=== PATIENT | female | born 1970 | race Caucasian/White ===

== ENCOUNTER 2021-04-10 09:23 | Outpatient (CLI) | payer OTHER, SELFPAY ==
--- NOTE | ~2021-04-10 | MM_ITS ---
EXAMINATION: MM screening [facility] w [facility] HISTORY: Screening TECHNIQUE: Craniocaudal and mediolateral oblique 3-D tomosynthesis images were obtained and synthetic 2-D images were generated. CAD analysis was submitted and interpreted. COMPARISON: Comparison to multiple prior studies sequentially, with oldest reviewed study dated 02/02. BREAST PARENCHYMAL COMPOSITION: Breast composed of scattered areas of fibroglandular density. FINDINGS: There is no evidence of suspicious mass, calcification, or architectural distortion to sugg est malignancy in either breast. There has been no suspicious interval change. IMPRESSION: 1. No mammographic evidence of malignancy. 2. Recommend routine screening mammography in one year. BI-RADS Category 1: Negative Reviewed, dictated and finalized at location A.
== END 2021-04-10 09:24 | disposition home or self-care (01) ==
LOC: ANHIMG 09:25
PROVIDERS: PCP Advanced Practice Midwife; Visit Provider Advanced Practice Midwife
DX: Z12.31 Encounter for screening mammogram for malignant neoplasm of breast (principal)
CPT/HCPCS: 77063; 77067

== ENCOUNTER 2022-05-19 16:43 | Outpatient (CLI) | payer OTHER, SELFPAY ==
--- NOTE | ~2022-05-19 | XR_ITS ---
XR shoulder RT min 2V DATE: 05/19/2022 17:06 INDICATION: Right shoulder pain after multiple falls TECHNIQUE: 5 views COMPARISON: None FINDINGS: There is mild to moderate osteoarthritis at the right glenohumeral joint. Normal alignment at the acromioclavicular and glenohumeral joints. No fracture or dislocation, periosteal reaction or bone destruction. IMPRESSION: Mild to moderate right glenohumeral osteoarthritis Reviewed, dictated and finalized at location B.
== END 2022-05-19 16:44 | disposition home or self-care (01) ==
PROVIDERS: PCP Advanced Practice Midwife
DX: M79.601 Pain in right arm (principal); M19.011 Primary osteoarthritis, right shoulder
CPT/HCPCS: 73030

== ENCOUNTER 2022-06-16 16:05 | Outpatient (CLI) | payer OTHER, SELFPAY ==
--- NOTE | ~2022-06-16 | CT_ITS ---
EXAMINATION: CT abdomen wo con DATE: 06/16/2022 16:35 INDICATION: Hernia. TECHNIQUE: Computed tomography (CT) of the abdomen was performed without intravenous contrast. The do se-length product was 280.69 mGy-cm. Automated exposure control and iterative reconstruction techniqu e were employed. COMPARISON: CT dated 03/18/2015 FINDINGS: Lung bases are unremarkable. Heart size normal. No significant pleural or pericardial effus ion. There is a hiatal hernia with surgical changes in the epigastrium. There are calcified granuloma s of the liver and spleen. The pancreas, adrenal glands and kidneys are unremarkable. There are renal /ureteral stones. Gallbladder is mildly distended. Nonobstructive bowel gas pattern. No significant v ascular abnormality. No lymphadenopathy. Moderate lumbar spondylosis. IMPRESSION: 1. Small hiatal hernia. Surgical changes of the stomach. Reviewed, dictated and finalized at location B.
== END 2022-06-16 16:06 | disposition home or self-care (01) ==
PROVIDERS: PCP Family Medicine
DX: K44.9 Diaphragmatic hernia without obstruction or gangrene (principal); M47.816 Spondylosis without myelopathy or radiculopathy, lumbar region
CPT/HCPCS: 74150

== ENCOUNTER 2022-07-18 08:35 | Outpatient (CLI) | payer OTHER, SELFPAY ==
--- NOTE | ~2022-07-18 | MM_ITS ---
EXAMINATION: MM screening [facility] BI w [facility] HISTORY: Screening mammogram TECHNIQUE: Craniocaudal and mediolateral oblique 3-D tomosynthesis images were obtained and synthetic 2-D images were generated. CAD analysis was submitted and interpreted. COMPARISON: 04/10/2021, 10/03/2019, 09/07/2019 BREAST PARENCHYMAL COMPOSITION: There are scattered areas of fibroglandular density. FINDINGS: No suspicious mass, calcification, or architectural distortion are identified in either malvin ast to suggest malignancy. There has been no suspicious interval change. IMPRESSION: 1. No mammographic evidence of malignancy. 2. Recommend routine screening mammography in one year. BI-RADS Category 1: Negative Reviewed, dictated and finalized at location A.
== END 2022-07-18 08:36 | disposition home or self-care (01) ==
PROVIDERS: PCP Family Medicine; Visit Provider Advanced Practice Midwife
DX: Z12.31 Encounter for screening mammogram for malignant neoplasm of breast (principal)
CPT/HCPCS: 77063; 77067

== ENCOUNTER 2022-10-31 08:19 | Outpatient (CLI) | payer OTHER, SELFPAY ==
--- NOTE | ~2022-10-31 | MR_ITS ---
MRI of the right shoulder Technique: Axial proton-density fat-sat images, coronal proton density fat-sat and T2 fat-sat images, and sagittal T1-weighted and T2 fat-sat images were acquired. Clinical History: Pain, osteoarthritis Findings: There is advanced degenerative change of the acromioclavicular joint. There is bony product madeline change of the distal clavicle with subacromial spur present. There is narrowing of the humeral ac romial distance to approximately 4 mm. Coracoclavicular, coracoacromial, and coracohumeral ligaments are probably intact. There is full-thickness tear involving central and posterior portions of the supraspinatus tendon, wh ich is retracted approximately to the level of the glenoid. Fluid-filled gap measures approximately 1 .7 x 1.8 cm in extent. Anterior most fibers of the supraspinatus tendon appear to remain intact. Infr aspinatus tendon is intact, with mild tendinosis. Subscapularis tendon is intact with moderate distal tendinosis. Tendon of the long head of the biceps is not visualized, presumably ruptured and retract ed proximally. There is questionable superior labral tear versus sublabral recess. Remainder of the labrum is intact . Inferior glenohumeral ligament is intact. There is small glenohumeral joint effusion with fluid passi ng through the rotator cuff defect into the subacromial/subdeltoid bursa. No muscle atrophy or edema evident. There is inferomedial humeral head spur, but articular cartilage of the glenohumeral joint i s well-preserved. Impression: Full-thickness tear involving the central and posterior portions of the supraspinatus tendon, as deta iled above. Complete rupture of the proximal biceps tendon with retraction. Questionable superior labral tear versus a labral recess. Inferomedial humeral head osteophyte, but no significant chondral lesion of the glenohumeral joint. Advanced AC joint degenerative change with narrowing of the humeral acromial distance. Reviewed, dictated and finalized at [facility] Impression: Full-thickness tear involving the central and posterior portions of the suprasp inatus tendon, as detailed above. Complete rupture of the proximal biceps tendon with retraction. Questionable superior labral tear versus a labral recess. Inferomedial humeral head osteophyte, but no significant chondral lesion of the glenohumeral joint. Advanced AC joint degenerative change with narrowing of the humeral acromial di stance.
== END 2022-10-31 08:20 | disposition home or self-care (01) ==
PROVIDERS: PCP Family Medicine
DX: M19.011 Primary osteoarthritis, right shoulder (principal); M25.511 Pain in right shoulder; G89.29 Other chronic pain; S46.811A Strain of other muscles, fascia and tendons at shoulder and upper arm level, right arm, initial encounter; S46.211A Strain of muscle, fascia and tendon of other parts of biceps, right arm, initial encounter; M25.711 Osteophyte, right shoulder
CPT/HCPCS: 73221

== ENCOUNTER 2023-09-22 10:03 | Outpatient (CLI) | payer OTHER, SELFPAY ==
--- NOTE | ~2023-09-22 | XR_ITS ---
EXAM: XR knee RT 3V DATE: 09/22/2023 10:33 HISTORY: PATELLA PAIN AFTER FALLS 6 MONTHS AGO . COMPARISON: None available. FINDINGS: Decreased mineralization. No fracture or dislocation. No lytic or blastic lesion. Mild med ial joint space narrowing. Mild tricompartmental osteophytosis. No erosion or periosteal change. Vari cose veins. IMPRESSION: No acute or chronic traumatic finding in the right knee. Mild tricompartmental osteoarthritis. Reviewed, dictated and finalized at location K. E MAN
== END 2023-09-22 10:04 | disposition home or self-care (01) ==
PROVIDERS: PCP Family Medicine
DX: M17.11 Unilateral primary osteoarthritis, right knee (principal); W19.XXXA Unspecified fall, initial encounter
CPT/HCPCS: 73562

== ENCOUNTER 2024-02-23 11:31 | Outpatient (CLI) | payer OTHER, SELFPAY ==
[2024-02-23 12:54] LABS: T4 Thyroxine 9.78 ug/dL (5.53-11.0)
[2024-02-23 13:07] LABS: Total Triiodothyronine (T3) 0.83 NG/ML (0.97-1.69)
== END 2024-02-23 11:32 | disposition home or self-care (01) ==
LOC: ANHLAB 11:35
PROVIDERS: PCP Family Medicine
DX: E03.9 Hypothyroidism, unspecified (principal)
CPT/HCPCS: 36415; 77063; 77067; 84436; 84443; 84480

== ENCOUNTER 2024-02-23 12:10 | Outpatient (CLI) | payer OTHER, SELFPAY ==
--- NOTE | ~2024-02-23 | MM_ITS ---
EXAMINATION: MM screening [facility] BI w [facility] HISTORY: Screening TECHNIQUE: Craniocaudal and mediolateral oblique 3-D tomosynthesis images were obtained and synthetic 2-D images were generated. CAD analysis was submitted and interpreted. COMPARISON: Comparison to multiple prior studies sequentially, with oldest reviewed study dated 02/13. BREAST PARENCHYMAL COMPOSITION: Not dense: There are scattered areas of fibroglandular density. FINDINGS: There is no evidence of suspicious mass, calcification, or architectural distortion to sugg est malignancy in either breast. There has been no suspicious interval change. IMPRESSION: 1. No mammographic evidence of malignancy. 2. Recommend routine screening mammography in one year. BI-RADS Category 1: Negative Reviewed, dictated and finalized at location B.
== END 2024-02-23 12:11 | disposition home or self-care (01) ==
PROVIDERS: PCP Family Medicine; Visit Provider Advanced Practice Midwife
DX: Z12.31 Encounter for screening mammogram for malignant neoplasm of breast (principal)
CPT/HCPCS: 77063; 77067

== ENCOUNTER 2025-01-05 07:47 | Outpatient (CLI) | payer OTHER, SELFPAY | END 2025-01-05 07:48 | disposition home or self-care (01) | PROVIDERS: PCP Family Medicine; Visit Provider Midwife | DX: Z00.00 Encounter for general adult medical examination without abnormal findings (principal); H90.3 Sensorineural hearing loss, bilateral | CPT/HCPCS: 92557; 92567 ==

== ENCOUNTER 2025-06-02 14:38 | Outpatient (CLI) | payer OTHER, SELFPAY ==
--- NOTE | ~2025-06-02 | MM_ITS ---
EXAMINATION: MM screening [facility] BI w [facility] HISTORY: Screening mammogram TECHNIQUE: Craniocaudal and mediolateral oblique 3-D tomosynthesis images were obtained and synthetic 2-D images were generated. CAD analysis was submitted and interpreted. COMPARISON: Mammograms 02/23/2024 and 07/18/2022 BREAST PARENCHYMAL COMPOSITION: The breasts are extremely dense, which lowers the sensitivity of mammography. FINDINGS: RIGHT BREAST: No suspicious calcifications or architectural distortion. Focal asymmetry in the right breast at 12:00 position posterior depth. In addition there is an asymmetry in the outer right breast, posterior depth, seen in the right cc projection. LEFT BREAST: There is no evidence of suspicious mass, calcification, or architectural distortion to suggest malignancy. There has been no significant interval change. IMPRESSION: 1. Focal asymmetry in the right breast at 12:00 position, posterior depth. In addition, there is an asymmetry in the outer right breast, posterior depth, seen in the right cc projection. 2. No mammographic evidence for malignancy in the left breast. BI-RADS Category 0: Incomplete: Needs additional imaging evaluation. Reviewed, dictated and finalized at location Q. IMPRESSION: 1. Focal asymmetry in the right breast at 12:00 position, posterior depth. In a ddition, there is an asymmetry in the outer right breast, posterior depth, seen in the right cc projection. 2. No mammographic evidence for malignancy in the left breast. BI-RADS Category 0: Incomplete: Needs additional imaging evaluation.
== END 2025-06-02 14:39 | disposition home or self-care (01) ==
LOC: ANHFOHIMG 14:40
PROVIDERS: PCP Family Medicine; Visit Provider Advanced Practice Midwife
DX: Z12.31 Encounter for screening mammogram for malignant neoplasm of breast (principal); R92.8 Other abnormal and inconclusive findings on diagnostic imaging of breast
CPT/HCPCS: 77063; 77067

== ENCOUNTER 2025-07-17 13:21 | Outpatient (CLI) | payer OTHER, SELFPAY ==
--- NOTE | ~2025-07-17 | MMUS_ITS ---
EXAMINATION: MM diagnostic jovita RT w isidoro, US breast RT complete HISTORY: Follow-up right breast asymmetries TECHNIQUE: Additional 3-D tomosynthesis images of the right breast were performed and synthetic 2-D images were generated. CAD analysis was submitted and interpreted. High resolution complete right breast ultrasound was performed. COMPARISON: Comparison to multiple prior studies sequentially, with oldest reviewed study dated 09/07/2019. BREAST PARENCHYMAL COMPOSITION: Not dense: There are scattered areas of fibroglandular density. FINDINGS: MAMMOGRAPHIC FINDINGS: There are no suspicious masses, calcifications or architectural distortion in the right breast to suggest malignancy. Right breast asymmetries are less apparent with spot compression and lateral views. ULTRASOUND: Complete US of all 4 quadrants of the right breast/s and retroareolar region was reviewed. Normal heterogeneous echotexture without focal solid or cystic mass. IMPRESSION: 1. No evidence for malignancy in the right breast. 2. Routine yearly screening mammogram and regular clinical breast examination are recommended. BI-RADS Category 1: Negative Reviewed, dictated and finalized at location B. IMPRESSION: 1. No evidence for malignancy in the right breast. 2. Routine yearly screening mammogram and regular clinical breast examination a re recommended. BI-RADS Category 1: Negative
--- OUTSIDE RECORDS SUMMARY | 2025-07-17 14:57 | XMS_ITS | Data Portability ---
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 Patient will come back in a year unless there are new symptoms. Suggest Calcium with Vitamin D if not eating in diet. Patient advised to get annual flu shot. Recommend yearly physicals and preform monthly breast exams. Genetic testing is available for patients with family history of cancer. Engage in safe sexual practices, use condoms. Encouraged to have daily exercise. Avoid tobacco and illicit drugs, moderation of alcohol. If BMI greater than 25 dietary consult advised. If you have any questions please call or email. mammogram order given Not available 05/29/2023 12:03:43 11/23/2024 11/23/2024 Annual gynecological exam performed. Patient will come back in a year unless there are new symptoms. Suggest Calcium with Vitamin D if not eating in diet. Patient advised to get annual flu shot. Recommend yearly physicals and preform monthly breast exams. Genetic testing is available for patients with family history of cancer. Engage in safe sexual practices, use condoms. Encouraged to have daily exercise. Avoid tobacco and illicit drugs, moderation of alcohol. If BMI greater than 25 dietary consult advised. If you have any questions please call or email. pap collected IUD removed start vaginal estrogen f/u with CT and guide travel can discuss other tx for menopause at 3 month med check, will have all results back mammogram order given Not available 11/23/2024 16:57:20 03/01/2025 03/01/2025 f/u 3 mo med check Not available 03/01/2025 11:18:41 Plan of Treatment Reminders Order Date Submit Date Provider Last Modified By Organization Details Last Modified Time Details Appointments None recorded. Lab pap, IG + HR HPV - HPV regardless but if HPV is positive need subtyping 16,18/[address] [facility] (Lab), [address], [place], [address], 14:10:26 Referral None recorded. Procedures None recorded. Surgeries None recorded. Imaging US, pelvis 2021 [address]22 [address], [address], [place], [address], 22:15:28 US, transvagina l [address], [address], [place], [address], 22:15:28 Medication Orders estradiol 0.0375 mg/24 hr semiweekly transdermal patch 2024 025 [id number], [address] [place], [address], 16:19:05 progesteron e micronized 100 mg capsule 2024 025 [id number], [address] [place], [address], 5 11:16:41 estradiol 0.01% (0.1 mg/gram) vaginal cream 2024 025 [id number], [address] [place], [address], 16:44:31 Patient TargetsNo targets recorded. Patient InstructionsNo instructions recorded. Reason for Referral None Reported. Results Created Date Observation Date Name Description Value Unit Range Abnormal Flag Note LastModifiedBy Organization Detail LastModifiedTime 04/25/2004/25/2022 FSH, LH, ESTRA DIOL estradiol 7.4 pg/mL This assay was perfo rmed using [employer] ratio n reage nts and test kits. Value s obtai virginie with other assay metho ds or kits canno t be used inter [facility] . Femal e Estra diol Range s: Folli cular phase 12.4- 233 pg/mL Ovula tion phase 41.0- 398 pg/mL Lutea l phase 22.3- 341 pg/mL Postm enopa usal< 5-138 pg/mL Healt hy Pregn ant Women 1st Trime ster1 54-32 43 pg/mL 2nd Trime ster1 561-2 1280 pg/mL 3rd Trime ster8 525-> 11874 pg/mL Not Available [facility] Infectious Disease [address] [place] [address], [address], 04/26/2022 03:53:37 04/25/20 22 04/25/2022 FSH, LH, ESTRA DIOL FSH 72.0 mIU/m L This assay was perfo rmed using [employer] reage nts and test kits. Value s obtai virginie with other assay metho ds or kits canno t be used inter [facility] . Femal es Folli cular : 3.5-1 2.5 mIU/m L Ovula tion: 4.7-2 1.5 mIU/m L Lutea l: 1.7-7 .7 mIU/m L Postm enopa use: 25.8- 134.8 mIU/m L Not Available [facility] Infectious Disease [address] [place], [address], 04/26/2022 03:53:37 04/25/20 22 04/25/2022 FSH, LH, ESTRA DIOL LH 52.9 mIU/m L This assay was perfo rmed using [employer] n reage nts and test kits. Value s obtai virginie with other assay metho ds or kits canno t be used inter [facility] . Femal es Mid-F ollic ular: 2.4-1 2.6 mIU/m L Mid-C ycle: 14.0- 95.6 mIU/m L Mid-L uteal : 1.0-1 1.4 mIU/m L Postm enopa use: 7.7-5 8.5 mIU/m L Not Available [facility] [address] [place], [address], 04/26/2022 03:53:37 04/25/20 22 04/25/2022 IMAGE GUIDE D PAP AND HPV REGAR DLESS image guided Pap, HPV regardless of Pap result SEE RESULT S BELOW CASE REPOR T: Cytol ogy Gynec ologi rick Repor t Case: [id number] Autho panda stanley Provi severiano: Yadira Michael NP Colle cted: 04/25 1603 Order ing Locat ion: [place] Patho log[facility] Recei rivera: 04/26 0114 First Scree n: Mara Resendiz ret, CT Rescr een: Daly Patel, CT Speci men: Scree marquita Pap - Image d, Cervi x STATE MENT OF ADEQU ACY: Satis facto ry for evalu ation Trans forma tion zone compo nent prese nt FINAL DIAGN OSIS: Negat madeline for Intra epith elial Kristine jordan or Pennie rhoades (NIL) . Elect spike le d by Daly Patel, CT on 2021 at 7:56 PM ----- ----- ----- ----- ----- ----- ----- ----- ----- ----- ----- ----- ----- ----- ----- ----- ----- ---- HPV RESUL TS: HPV mRNA E6/E7 : No HPV mRNA Detec kinza NOTE: This high risk HPV mRNA assay detec ts fourt een high- risk HPV types (16, 18, 31, 33, 35, 39, 45, 51, 52, 56, 58, 59, 66, 68) witho ut diffe renti ation . COMME NT: Note: This speci men was revie wed by a Cytot echno logis t and/o r Patho logis t (as indic ated in this repor t) after evalu ation using the Thinp rep Imagi ng Syste m. CLINI RICK INFOR MATIO N: Menst rual Statu s: LMP (if appli cable ): Clini rick Histo ry/Pr eviou s Pap: Type of Neopl yessenia (if appli cable ): Signi fican t Clini rick Findi ngs: Other Histo ry: Hormo hilary (if appli cable ): PAP EDUCA ELSA L NOTE: The Pap Test is a scree marquita test with an inher ent false negat madeline rate. Liqui d-bas ed sampl ing may decre ase, but will not elimi shonda, false negat madeline resul ts. A negat madeline resul t does not precl ude the prese nce and/o r devel opmen t of disea se, since the prese nce of abnor mal cells in the sampl e depen ds on the locat ion of the lesio n and sampl ing techn ique. Riley nued regul ar scree marquita is the best metho d of cance r preve ntion . If repor kinza cytol ogic findi ng do not corre late with physi rick and/o r histo rical findi ngs, furth er inves tigat ion is recom jose d, as clini gwen cho nted. Not Available [facility] Infectious Disease [address] [place], [address], 04/30/2022 20:59:10 05/13/20 23 05/13/2023 FSH, LH, ESTRA DIOL estradiol 8.9 pg/mL This assay was perfo rmed using [employer] n reage nts and test kits. Value s obtai virginie with other assay metho ds or kits canno t be used inter [facility] . Femal e Estra diol Range s: Folli cular phase 12.4- 233 pg/mL Ovula tion phase 41.0- 398 pg/mL Lutea l phase 22.3- 341 pg/mL Postm enopa usal< 5-138 pg/mL Healt hy Pregn ant Women 1st Trime ster1 54-32 43 pg/mL 2nd Trime ster1 561-2 1280 pg/mL 3rd Trime ster8 525-> 36067 pg/mL Not Available [facility] (Lab) [address] [place], [address], 05/14/2023 03:31:22 05/13/2005/13/2023 FSH, LH, ESTRA DIOL FSH 67.9 mIU/m L This assay was perfo rmed using [employer] ratio n reage nts and test kits. Value s obtai virginie with other assay metho ds or kits canno t be used inter [facility] . Femal es Folli cular : 3.5-1 2.5 mIU/m L Ovula tion: 4.7-2 1.5 mIU/m L Lutea l: 1.7-7 .7 mIU/m L Postm enopa use: 25.8- 134.8 mIU/m L Not Available [facility] (Lab) [address] [place], [address], 05/14/2023 03:31:22 05/13/2005/13/2023 FSH, LH, ESTRA DIOL LH 54.4 mIU/m L This assay was perfo rmed using [employer] n reage nts and test kits. Value s obtai virginie with other assay metho ds or kits canno t be used inter [facility] . Femal es Mid-F ollic ular: 2.4-1 2.6 mIU/m L Mid-C ycle: 14.0- 95.6 mIU/m L Mid-L uteal : 1.0-1 1.4 mIU/m L Postm enopa use: 7.7-5 8.5 mIU/m L Not Available [facility] (Lab) [address], [place], [address], 05/14/2023 03:31:22 05/29/20 23 05/29/2023 IMAGE GUIDE D PAP AND HPV REGAR DLESS image guided Pap, HPV regardless of Pap result SEE RESULT S BELOW CASE REPOR T: Cytol ogy Gynec ologi rick Repor t Case: [id number] Autho panda jaden Provi severiano: Yadira Michael, KITTY Colle cted: 05/29 1319 Order ing Locat ion: [place] Patho logy Recei rivera: 06/01 0704 First Scree n: Mara Resendiz ret, CT Speci men: Scree marquita Pap - Image d, Cervi x STATE MENT OF ADEQU ACY: Satis facto ry for evalu ation Trans forma tion zone compo nent prese nt FINAL DIAGN OSIS: Negat madeline for Intra epith elial Lesio n or Pennie rhoades (NIL) . Elect spike paz rey d by Mara Resendiz ret, CT on 2022 at 10:45 AM ----- ----- ----- ----- ----- ----- ----- ----- ----- ----- ----- ----- ----- ----- ----- ----- ----- ---- HPV RESUL TS: HPV mRNA E6/E7 : No HPV mRNA Detec kinza NOTE: This high risk HPV mRNA assay detec ts fourt een high- risk HPV types (16, 18, 31, 33, 35, 39, 45, 51, 52, 56, 58, 59, 66, 68) witho ut diffe renti ation . COMME NT: This speci men was revie wed by a Cytot echno logis t and/o r Patho logis t (as indic ated in this repor t) after evalu ation using the Thinp rep Imagi ng Syste m. CLINI RICK INFOR MATIO N: Menst rual Statu s: LMP (if appli cable ): Clini rick Histo ry/Pr eviou s Pap: Type of Neopl yessenia (if appli cable ): Signi fican t Clini rick Findi ngs: Other Histo ry: Hormo hilary (if appli cable ): PAP EDUCA ELSA L NOTE: The Pap Test is a scree marquita test with an inher ent false negat madeline rate. Liqui d-bas ed sampl ing may decre ase, but will not elimi shonda, false negat madeline resul ts. A negat madeline resul t does not precl ude the prese nce and/o r devel opmen t of disea se, since the prese nce of abnor mal cells in the sampl e depen ds on the locat ion of the lesio n and sampl ing techn ique. Riley nued regul ar scree marquita is the best metho d of cance r preve ntion . If repor kinza cytol ogic findi ng do not corre late with physi rick and/o r histo rical findi ngs, furth er inves tigat ion is recom jose d, as clini gwen cho nted. Not Available [facility] (Lab) [address] [facility], [place], [address], 06/02/2023 11:50:05 11/25/19 25 11/24/2024 IMAGE GUIDE D PAP AND HPV REGAR DLESS image guided Pap, HPV regardless of Pap result SEE RESULT S BELOW CASE REPOR T: Cytol ogy Gynec ologi rick Repor t Case: [id number] Autho panda stanley Provi severiano: Yadira Michael NP Colle cted: 11/24 0834 Order ing Locat ion: [place] Patho logy Recei rivera: 11/25 0241 First Scree n: Yao Avalos, CT Rescr een: Strut z, Willi am, CT Speci men: Scree marquita Pap - Image d, Cervi x STATE MENT OF ADEQU ACY: Satis facto ry for evalu ation Trans forma tion zone compo nent prese nt ----- ----- ----- ----- ----- ----- ----- ----- ----- ----- ----- ----- ----- ----- ----- ----- ----- ---- FINAL DIAGN OSIS: Negat madeline for Intra epith elial Lesio nikki or Pennie rhoades (NIL) . Atrop hy prese nt. Elect spike de by Enzo marshall, CT on 2024 at 1306 CDT ----- ----- ----- ----- ----- ----- ----- ----- ----- ----- ----- ----- ----- ----- ----- ----- ----- ---- HPV RESUL TS: HPV mRNA E6/E7 : No HPV mRNA Detec kinza NOTE: This high risk HPV mRNA assay detec ts fourt een high- risk HPV types (16, 18, 31, 33, 35, 39, 45, 51, 52, 56, 58, 59, 66, 68) witho ut diffe renti ation . COMME NT: This speci men was revie wed by a Cytot echno logis t and/o r Patho logis t (as indic ated in this repor t) after evalu ation using the Thinp rep Imagi ng Syste m. CLINI RICK INFOR MATIO N: Menst rual Statu s: LMP (if appli cable ): Clini rick Histo ry/Pr eviou s Pap: Type of Neopl yessenia (if appli cable ): Signi fican t Clini rick Findi ngs: Other Histo ry: Hormo hilary (if appli cable ): PAP EDUCA ELSA L NOTE: The Pap Test is a scree marquita test with an inher ent false negat madeline rate. Liqui d-bas ed sampl ing january decre ase, but will not elimi shonda, false negat madeline resul ts. A negat madeline resul t does not precl ude the prese nce and/o r devel opmen t of disea se, since the prese nce of abnor mal cells in the sampl e depen ds on the locat ion of the lesio n and sampl ing techn ique. Riley nued regul ar scree marquita is the best metho d of cance r preve ntion . If repor kinza cytol ogic findi ng do not corre late with physi rick and/o r histo rical findi ngs, furth er inves tigat ion is recom jose d, as clini gwen warra nted. Not Available [facility] (Lab) [address] [facility], [place], [address], 11/29/2024 14:10:26 03/01/2003/01/2025 TESTO STERO NE, FREE( DIALY SIS) AND TOTAL (LC/M S/MS) testosterone , total 15 NG/dL 2-45 For addit ional infor alma freeman e refer to http: //[facility] natacha jordan.que stdia gnost ics.c om/fa q/ Total Testo stero neLCM SMSFA Q165 (This link is being provi ded for infor praful cerrato/ educa elsa l purpo ses only. ) This test was devel oped and its sri tical perfo rmanc e dayanara cteri stics have been deter mined by [facility] Joseluis Bordeni [place]. It has not been clear ed or appro rivera by the U.S. Food and Drug Admin istra tion. This assay has been valid ated pursu ant to the CLIA regul ation s and is used for clini rick purpo ses. Not Available [facility] (Lab) [address], [place], [address], 03/06/2025 14:33:23 03/01/2003/01/2025 TESTO STERO NE, FREE( DIALY SIS) AND TOTAL (LC/M S/MS) testosterone , free 0.9 pg/mL 0.1-6. 4 This test was devel oped and its sri tical perfo rmanc e dayanara cteri stics have been deter mined by [facility] krish Huggins [place], [place]. It has not been clear ed or appro rivera by the U.S. Food and Drug Admin istra tion. This assay has been valid ated pursu ant to the CLIA regul ation s and is used for clini rick purpo ses. Perfo rming Organ izati on Infor matio n: Site ID: AMD Name: Gemisimo Roxie borrego [facility] Addre ss: [id number] [facility] [employer] [place], [place] Direc tor: Maranda Kern MD PhD Not Available [facility] (Lab) [address] [facility], [place], [address], 03/06/2025 14:33:23 05/06/20 22 05/06/2022 US, pelvi s No observ ation record ed. [id number], [place], [address], 05/06/2022 17:36:51 05/06/20 22 05/06/2022 US, trans vagin al No observ ation record ed. [address], [place], [address], 05/06/2022 17:37:02 05/06/20 22 05/06/2022 US, pelvi s No observ ation record ed. [email or web address], [place], [address], 05/12/2022 16:38:04 05/19/20 22 05/19/2022 XR, shoul severiano No observ ation record ed. [place] [id number], [place], [address], 01/29/2023 10:05:03 07/18/20 22 07/18/2022 MAMMO , scree marquita, bilat eral No observ ation record ed. [facility] [address], [place], [address], 07/20/2022 21:44:38 02/23/20 24 02/23/2024 MAMMO , scree marquita, digit al, bilat eral No observ ation record ed. [facility] [address], [place], [address], 11/30/2024 14:44:41 06/06/20 25 06/02/2025 MAMMO , scree marquita, bilat eral No observ ation record ed. [address] [facility] [address], [place], [address], 06/07/2025 10:35:35 Result Notes None recorded. Problems Name Problem SNOMED Code Status Onset Date Resolution Date Notes Provider Name and Address Organization Details Recorded Time Screenin g for malignan t neoplasm of rectum Completed 201204/09/2021 Screenin g for malignan t neoplasm s of the rectum;R ecorded Elsewher e: No Locat ion: [facility] S ource: EHR Floor Layer Helper temi: N Practi ce ID: 0001 Nikita lable Time: 09:45:00 AM Mya edwards [facility] 1 12:12:44 Screenin g for malignan t neoplasm of cervix Completed 201304/09/2021 Screenin g for malignan t neoplasm s of the cervix;R ecorded Elsewher e: No Locat ion: [facility] S ource: EHR Floor Layer Helper temi: N Practi ce ID: 0001 Nikita lable Time: 09:30:00 AM Mya edwards [facility] 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 12:12:50 Morbid obesity [id number] Completed 201404/09/2021 Obesity, Morbid;R ecorded Elsewher e: No Locat ion: [facility] Pract[facility] ID: 0001 Nikita lable Time: 11:00:00 AM Mya Bledsoe [facility] 12:12:35 Adult health examinat ion Completed 201404/09/2021 ROUTINE MEDICAL EXAM;Rec orded Elsewher e: No Locat ion: [facility] N Ashleyti ce ID: 0001 Nikita lable Time: 11:00:00 AM Mya Bledsoe grace, [facility] 1 12:12:01 Insertio n of intraute rine contrace ptive device Completed 201404/09/2021 INSERTIO N OF IUD;Sean rded Elsewher e: No Locat ion: [facility] N Ashleyti ce ID: 0001 Nikita lable Time: 08:45:00 AM Mya edwards [facility] 12:12:32 Uses IUD (intraut erine device) contrace ption [id number] Completed 201404/09/2021 Surveill ance of intraute rine contrace ptive device;R ecorded Elsewher e: No Locat ion: [facility] S ource: EHR Floor Layer Helper temi: N Ashleyti ce ID: 0001 Nikita lable Time: 03:00:00 PM Mya edwards [facility] [address] 12:12:[address] Concept Completed 201504/09/2021 Encntr for general adult medical exam w/o abnormal findings ;Recorde d Elsewher e: No Locat ion: [facility] S ource: EHR Floor Layer Helper temi: N Practi ce ID: 0001 Nikita lable Time: 09:00:00 AM Mya Bledsoe [facility] 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 1 12:12:48 Contrace ptive sheath status [id number] Completed 201704/09/2021 Encounte r for routine checking of IUD;Sean rded Elsewher e: No Locat ion: [facility] S ource: EHR Floor Layer Helper temi: N Practi ce ID: 0001 Nikita lable Time: 09:49:00 AM Mya Bledsoe [facility] 1 12:12:11 Disorder of intraute rine contrace ptive device Completed 201704/09/2021 [facility] compl of intraute rine contrace ptive device, init encntr;R ecorded Elsewher e: No Locat ion: [facility] S ource: EHR Floor Layer Helper temi: N Practi ce ID: 0001 Nikita lable Time: 09:45:00 AM Mya Bledsoe [facility] 1 12:12:25 Evaluati on finding Completed 201804/09/2021 Oth abn and inconclu sive findings on dx imaging of breast;R ecorded Elsewher e: No Locat ion: [facility] N Ashleyti ce ID: 0001 Nikita lable Time: 01:30:00 PM Mya edwards, [facility] 12:12:06 Acetonur ia [id number] Completed 201804/09/2021 Acetonur ia;Recor ded Elsewher e: No Locat ion: [facility]in [facility] N Ashleyti ce ID: 0001 Nikita lable Time: 01:30:00 PM Mya edwards, [facility] 12:11:59 Cyst of ovary Completed 201904/09/2021 Unspecif ied ovarian cyst, unspecif ied side;Rec orded Elsewher e: No Locat ion: [facility] S ource: [facility] temi: N Karen ce ID: 0001 Nikita lable Time: 01:00:00 PM Mya edwards, [facility] 12:12:27 Pregnanc y test negative [id number] Completed 201904/09/2021 Encounte r for pregnanc y test, result negative ;Recorde d Elsewher e: No Locat ion: [facility] S ource: [facility] temi: N Ashleyti ce ID: 0001 Nikita lable Time: 01:00:00 PM Mya edwards, [facility] 12:12:39 Replacem ent of intraute rine contrace ptive device Completed 201904/09/2021 Encntr for removal and reinsert ion of uterin contrace p dev;Sean rded Elsewher e: No Locat ion: [facility] S ource: [facility] temi: N Ashleyti ce ID: 0001 Nikita lable Time: 02:00:00 PM Mya edwards, [facility] 12:12:41 Biliuria [id number] Completed 201904/09/2021 Biliuria ;Recorde d Elsewher e: No Locat ion: [facility] N Ashleyti ce ID: 0001 Nikita lable Time: 01:00:00 PM Myatimmy Bledsoe [facility] 1 12:12:03 Evaluati on finding Completed 201904/09/2021 Hematuri a;Record ed Elsewher e: No Locat ion: [facility] N Practi ce ID: 0001 Nikita lable Time: 01:00:00 PM Mya Bledsoe [facility] 12:12:29 Clinical finding Completed 201904/09/2021 Presence of IUD;Sean rded Elsewher e: No Locat ion: [facility] N Ashleyti ce ID: 0001 Nikita lable Time: 01:00:00 PM Mya Ladi [facility] 1 12:12:08 Postcoit al finding [id number] Completed 201904/09/2021 Postcoit al and contact bleeding ;Recorde d Elsewher e: No Locat ion: [facility] N Ashleyti ce ID: 0001 Nikita lable Time: 04:09:00 PM Mya Bledsoe [facility] 1 12:12:38 Hyperten sive disorder [id number] Active 2024 Mya Bledsoe [facility] 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 5 11:01:45 Problem Notes None recorded. Procedures Surgical History Date Name Laterality Status Provider Name and Address Organization Details Recorded Time 06/02/20 25 Date of Last Mammogram completed Soledad Angelo [facility] 06/07/2025 16:19:58 11/24/19 25 IUD Removal completed Mya Bledsoe [facility] 11/23/2024 21:20:22 11/24/19 25 Date of Last Pap Smear completed Mya Bledsoe [facility] 11/23/2024 21:21:42 10/22/19 25 endoscopy completed Mya Bledsoe [facility] 11/23/2024 16:16:20 08/21/20 24 endoscopy completed Mya Bledsoe [facility] 11/23/2024 16:18:39 05/22/20 24 endoscopy completed Mya Bledsoe [facility] 11/23/2024 16:18:33 04/28/20 24 Gastric Bypass completed Mya Bledsoe [facility] 11/23/2024 16:15:15 02/20/20 24 endoscopy completed Mya Bledsoe [facility] 11/23/2024 16:18:30 11/20/19 24 endoscopy completed Mya Bledsoe [facility] 11/23/2024 16:18:25 09/21/19 24 Date of Last Colonoscopy completed Soledad Angelo [facility] 06/07/2025 16:22:19 09/21/19 24 Colonoscopy completed Mya Bledsoe [facility] 11/23/2024 16:15:24 09/21/19 24 endoscopy completed Mya Bledsoe [facility] 11/23/2024 16:18:21 09/21/19 19 laparoscopic sleeve gastrectomy completed Mya Bledsoe [facility] 04/10/2021 09:56:13 09/21/19 07 termination of completed Mya Bledsoe [facility] 05/28/2023 15:18:42 10/22/19 01 section completed Mya Bledsoe [facility] 04/09/2021 14:06:00 09/21/19 01 repair of umbilical hernia completed Mya Bledsoe [facility] 04/09/2021 14:05:40 05/22/19 97 section completed Mya Bledsoe [facility] 04/09/2021 14:05:54 Imaging Results None recorded. Procedure Notes None recorded. Medical Equipment None Reported. Allergies Allergen ID Allergen Name Allergen Category Reaction Reaction Severity Criticality Documentation Date Start Date Code Code System Note Provider Name and Address Organization Details Recorded Time 19559 pamabrom medicatio n Not available Not available Not available 09/07/2020 42730 RxNorm Comme nt: [facility] Agent : Midol ; Not Available [facility] 0 14:17:48 49824 acetamino phen medicatio n Not available Not available Not available 09/07/2020 161 RxNorm Comme nt: [facility] Agent : Midol ; [facility] 1 09:54:39 11001 phenyleph rine / pyrilamin e medicatio n Not available Not available Not available 04/09/2021 70282 2 RxNorm Mya edwards [facility] 1 14:13:01 65082 acetamino phen / pamabrom medicatio n Not available Not available Not available 04/10/2021 16869 4 RxNorm Mya edwards [facility] 1 09:54:34 Medications Name Sig Start Date Stop Date Status Note LastModified by Organization Details LastModified Time losartan 50 mg tablet 03/01 completed Not Available Not Available Not Available celecoxib 200 mg capsule TAKE 1 CAPSULE BY MOUTH EVERY DAY 05/29 completed Not Available Not Available Not Available cyclobenz aprine 10 mg tablet TAKE 1 TABLET (10 MG TOTAL) BY MOUTH EVERY 8 HOURS FOR 5 DAYS 11/23 completed Not Available Not Available Not Available Mirena 21 mcg/24 hr (up to 8 years) 52 mg intrauter ine device 06/07 completed mirena IUD inserted 0 and needs removed 6 Not Available Not Available Not Available venlafaxi ne ER 75 mg capsule,e xtended release 24 hr TAKE 1 CAPSULE BY MOUTH EVERY DAY DIRECTED 11/23 completed Not Available Not Available Not Available doxycycli ne hyclate 100 mg capsule TAKE 2 CAPSULES ONCE 11/23 completed Not Available Not Available Not Available estradiol 0.075 mg/24 hr semiweekl y transderm al patch APPLY 1 PATCH TRANSDER ADI TWICE A WEEK active Not Available Not Available No t Available azithromy agatha 250 mg tablet TAKE 2 TABLETS BY MOUTH TODAY, THEN TAKE 1 TABLET DAILY FOR 4 DAYS 05/29 completed Not Available Not Available Not Available hydrocodo ne 5 mg-acetam inophen 325 mg tablet TAKE 1 TABLET BY MOUTH EVERY 6 HOURS NEEDED FOR PAIN 03/01 completed Not Available Not Available Not Available meloxicam 15 mg tablet TAKE 1 TABLET BY MOUTH EVERY DAY 05/29 completed Not Available Not Available Not Available Synthroid 100 mcg tablet take 1 tablet (100MCG) by oral route every day 02/02 completed Prescrib ed Elsewher e: No [facility]at [facility] By: cmedical Encount er DateTime : 09/27/19 14 11:30:33 AM Not Available Not Available Not Available amlodipin e 2.5 mg tablet TAKE 1 TABLET BY MOUTH EVERY DAY active Not Available Not Available No t Available estradiol 0.05 mg/24 hr semiweekl y transderm al patch APPLY 1 PATCH TRANSDER ADI TWICE A WEEK 06/07 completed Not Available Not Available Not Available methotrex ate sodium 25 mg/mL injection solution inject 3.28 millilit er by intramus cular route every day 02/05 completed Prescrib ed Elsewher e: Yes Loca tion: Tim[facility] odify By: [email or web address] trick En counter DateTime : 02/03/20 14 09:30:00 AM Not Available Not Available Not Available ciproflox acin 500 mg tablet TAKE 1 TABLET BY MOUTH EVERY 12 HOURS FOR 7 DAYS 06/07 completed Not Available Not Available Not Available omeprazol e 40 mg capsule,d elayed release TAKE 1 CAPSULE BY MOUTH 2 TIMES DAILY, BEFORE BREAKFAS T AND SUPPER 11/23 completed Not Available Not Available Not Available levothyro xine 25 mcg tablet TAKE 1 TABLET BY MOUTH EVERY DAY 04/25 completed Not Available Not Available Not Available levothyro xine 75 mcg tablet TAKE 1 TABLET BY MOUTH EVERY DAY active Not Available Not Available No t Available Macrobid 100 mg capsule take 1 capsule by oral route every 12 hours with food for 5 days 04/09 completed Not Available Not Available Not Available famotidin e 20 mg tablet TAKE 1 TABLET BY MOUTH TWICE A DAY 11/23 completed Not Available Not Available Not Available tamsulosi n 0.4 mg capsule TAKE 1 CAPSULE BY MOUTH DAILY FOR 10 DAYS. 03/01 completed Not Available Not Available Not Available Flagyl 500 mg tablet take 1 tablet by oral route every 12 hours 04/09 completed Prescrib ed Elsewher e: No Locat ion: [facility] odify By: yuliet cope DateTime : 12/20/19 09:00:00 AM Not Available Not Available Not Available benzonata te 100 mg capsule TAKE 1 CAPSULE BY MOUTH THREE TIMES A DAY NEEDED FOR 5 DAYS 11/23 completed Not Available Not Available Not Available levothyro xine 50 mcg tablet TAKE 1 TABLET BY MOUTH EVERY DAY 03/01 completed Not Available Not Available Not Available venlafaxi ne 37.5 mg tablet take 1 tablet by oral route 2 times every day with food 09/07 completed Prescrib ed Elsewher e: Yes Loca tion: [facility] odify By: [email or web address] z Fede ter DateTime : 02/06/20 11:00:00 AM Not Available Not Available Not Available triamcino lone acetonide 0.1 % topical ointment apply by topical route 2 times every day a thin layer to the affected area(s) 09/07 completed Prescrib jessica Elsew e: No Locat ion: Timmy low [facility] odify By: jolie Mistry ter DateTime : 02/12/20 16 09:00:00 AM Not Available Not Available Not Available hyoscyami ne 0.125 mg sublingua l tablet TAKE 1 TABLET BY MOUTH EVERY 6 (SIX) HOURS FOR [address] UNDER TONGUE AND LET DISSOLVE 11/23 completed Not Available Not Available Not Available ursodiol 300 mg capsule TAKE 1 CAPSULE BY MOUTH 2 (TWO) TIMES A DAY TAKE FOR 6 MONTHS AFTER SURGERY TO PREVENT GALLSTON ES 11/23 completed Not Available Not Available Not Available losartan 25 mg tablet TAKE 1 TABLET BY MOUTH EVERY DAY 11/23 completed Not Available Not Available Not Available progester one micronize d 200 mg capsule TAKE 1 CAPSULE BY MOUTH EVERY DAY active Not Available Not Available No t Available omeprazol e 20 mg capsule,d elayed release TAKE 1 (ONE) CAPSULE BY MOUTH DAILY BEFORE BREAKFAS T REASONS: GASTROES OPHAGEAL REFLUX DISEASE 04/25 completed Not Available Not Available Not Available monteluka st 10 mg tablet take 1 tablet by oral route every day in the evening 09/07 completed Prescrib jessica Alejandre e: Yes Loca tion: Timmy low [facility] odify By: jolie z Encoun ter DateTime : 02/06/20 15 11:00:00 AM Not Available Not Available Not Available azelastin e 137 mcg (0.1 %) nasal spray SPRAY 1-2 SPRAYS INTO EACH NOSTRIL TWICE A DAY active Not Available Not Available No t Available polyethyl ysabel glycol 3350 17 gram/dose oral powder MIX 17 GRAMS DIRECTED AND TAKE BY MOUTH 2 (TWO) TIMES A DAY 11/23 completed Not Available Not Available Not Available estradiol 0.01% (0.1 mg/gram) vaginal cream INSERT 1 APPLICAT ORFUL 3 TIMES A WEEK BY VAGINAL ROUTE. active Not Available Not Available No t Available methylpre dnisolone 4 mg tablets in a dose pack TAKE 6 TABLETS ON DAY 1 DIRECTED ON PACKAGE AND DECREASE BY 1 TAB EACH DAY FOR A TOTAL OF 6 DAYS 06/07 completed Not Available Not Available Not Available Vitamin D2 1,250 mcg (50,000 unit) capsule take 1 capsule ([id number] ITS) by oral route every week 02/05 completed Prescrib ed Elsewher e: No Locat ion: Timmy low [facility] odify By: [email or web address] xavier En counter DateTime : 04/25/20 13 01:45:48 PM Not Available Not Available Not Available estradiol 0.0375 mg/24 hr semiweekl y transderm al patch APPLY 1 PATCH TRANSDER ADI TWICE A WEEK 06/07 completed Not Available Not Available Not Available ondansetr on 4 mg disintegr ating tablet LET 1 TABLET DISSOLVE UNDER TONGUE EVERY 8 HOURS NEEDED FOR NAUSEA OR VOMITING 11/23 completed Not Available Not Available Not Available losartan 100 mg tablet TAKE 1 TABLET BY MOUTH EVERY DAY active Not Available Not Available No t Available fluticaso ne propionat e 50 mcg/actua tion nasal spray,ludwig pension INSTILL 2 SPRAYS BY INTRANAS AL ROUTE EVERY DAY 11/23 completed Not Available Not Available Not Available lisinopri l 2.5 mg tablet take 1 tablet by oral route every day 09/07 completed Prescrib ed Elsewher e: Yes Loca [facility]ion: [facility] By: jolie cope DateTime : 02/03/20 14 09:30:00 AM Not Available Not Available Not Available estradiol 0.1 mg/24 hr weekly transderm al patch APPLY 1 PATCH BY TRANSDER MAL ROUTE EVERY WEEK active Not Available Not Available No t Available progester one micronize d 100 mg capsule TAKE 1 CAPSULE BY MOUTH EVERY NIGHT active Not Available Not Available No t Available amoxicill in 875 mg-potass ium clavulana te 125 mg tablet TAKE 1 TABLET BY MOUTH EVERY 12 HOURS FOR 10 DAYS 11/23 completed Not Available Not Available Not Available oxycodone 5 mg tablet TAKE 1 TABLET BY MOUTH EVERY 6 HOURS NEEDED FOR PAIN (PAIN NOT CONTROLL ED BY OTHER MEDICINE S.) 11/23 completed Not Available Not Available Not Available Prilosec OTC 20 mg tablet,de layed release 04/09 completed Prescrib ed Elsewher e: Yes [facility] By: jolie Mistry ter DateTime : 09/07/20 01:30:00 PM Not Available Not Available Not Available Lamisil AT 1 % topical gel 02/11 completed Prescrib jessica low: Yes [facility] By: [email or web address] trick En counter DateTime : 02/06/20 11:00:00 AM Not Available Not Available Not Available ID NOW COVID-19 Test Kit TEST DIRECTED TODAY 05/29 completed Not Available Not Available Not Available Contour Plus Blue Meter USE DIRECTED 06/07 completed Not Available Not Available Not Available Vitals Date Recorded Body height Body mass index (BMI) Body weight Systolic And Diastolic Provider Name and Address Organization Details Last Updated DateTime 11/23/2024 160.02 cm 27.3 kg/m2 40050.22 g 165/93 mm[Hg] Mya Bledsoe [facility] 11/23/2024 16:10:35 Date Recorded Body height Body mass index (BMI) Body weight Systolic And Diastolic Provider Name and Address Organization Details Last Updated DateTime 03/01/2025 160.02 cm 25.3 kg/m2 41557.71 g 131/82 mm[Hg] Mya Bledsoe [facility] 03/01/2025 11:00:48 Date Recorded Body height Body mass index (BMI) Body weight Systolic And Diastolic Provider Name and Address Organization Details Last Updated DateTime 05/29/2023 160.02 cm 35.4 kg/m2 02576.47 g 159/98 mm[Hg] Mya Bledsoe [facility] 05/29/2023 09:36:49 Date Recorded Body height Body mass index (BMI) Body weight Systolic And Diastolic Provider Name and Address Organization Details Last Updated DateTime 06/07/2025 160.02 cm 25 kg/m2 31343.52 g 137/87 mm[Hg] Soledad Angelo [facility] 06/07/2025 16:18:45 Social History Question Answer Notes LastModified by Organizat ion Details LastModified Time Tobacco Smoking Status Former Smoker Mya Bledsoe [facility] 05/29/2023 09:37:01 Do You Have An Advance Directive? No [email or web address] Information n ot available 05/29/2023 Are You Blind Or Do You Have Difficulty Seeing? No [email or web address] Information n ot available 04/10/2021 What Is Your Level Of Caffeine Consumption? Moderate [email or web address] Information not available 04/10/2021 How Much Tobacco Do You Chew? None [email or web address] Information not available 05/29/2023 In The 14 Days Before Symptom Onset, Have You Had Close Contact With A Laboratory-confirm ed COVID-19 While That Case Was Ill? No [email or web address] Information n ot available 04/10/2021 In The 14 Days Before Symptom Onset, Have You Had Close Contact With A Person Who Is Under Investigation For COVID-19 While That Person Was Ill? No [email or web address] Information not available 04/10/2021 Have You Been To An Area Known To Be High Risk For COVID-19? No [email or web address] Information not available 04/10/2021 Are You Deaf Or Do You Have Serious Difficulty Hearing? No [email or web address] Information not available 04/10/2021 What Type Of Diet Are You Following? REGULAR [email or web address] Information n ot available 04/10/2021 What Is The Highest Grade Or Level Of School You Have Completed Or The Highest Degree You Have Received? XV01777-3 [email or web address] Information not available 05/29/2023 When Did You Quit Smoking? 1-5yearssince lastcisesar [email or web address] Information not available 06/07/2025 Are There Any Guns Present In Your Home? No [email or web address] Information not available 05/29/2023 What Is Your Current Pack Years? 10packyears [email or web address] Information not available 06/07/2025 Have You Ever Been Counseled For Unhealthy Alcohol Use? No [email or web address] Information not available 05/29/2023 Do You Use Protection During Sex? No [email or web address] Information not available 05/29/2023 Do You Use Your Seat Belt Or Car Seat Routinely? Yes Information not available 04/10/2021 Are You Sexually Active? Yes [email or web address] Information not available 06/07/2025 Do You Have Smoke And Carbon Monoxide Detectors In Your Home? Yes [email or web address] Information not available 04/10/2021 How Much Tobacco Do You Smoke? No [email or web address] Information not available 05/29/2023 Do You Use Sunscreen Routinely? Yes [email or web address] Information not available 04/10/2021 Has Tobacco Cessation Counseling Been Provided? No [email or web address] Information not available 05/29/2023 Have You Used IV Drugs? No [email or web address] Information not available 05/29/2023 Do You Have Difficulty Walking Or Climbing Stairs? No [email or web address] Information not available 05/29/2023 Sex: Unknown Functional Status Question Answer Note LastModified by Organizat ion Details LastModified Time Do you use any illicit or recreational drugs? No [email or web address] Information not available 04/10/2021 Do you or have you ever used any other forms of tobacco or nicotine? No [email or web address] Information not available 05/29/2023 What is your level of alcohol consumption? Occasional [email or web address] Information not available 04/10/2021 Are you currently employed? No [email or web address] Information not available 06/07/2025 Are you able to walk independently without assistance or assistive devices? YESWOREST [email or web address] Information not available 04/10/2021 Are you able to care for yourself independently? Yes [email or web address] Information not available 05/29/2023 Do you have difficulty dressing, bathing, grooming, or toileting? No [email or web address] Information not available 05/29/2023 What is your exercise level? Occasional [email or web address] Information not available 04/10/2021 Mental Status Question Answer Note LastModified by Organization D etails LastModified Time Do you feel stressed (tense, restless, nervous, or anxious, or unable to sleep at night)? [id number] Information not available 04/10/2021 Family History Relationship Description Onset Age of this Age Resolved Age Notes LastModified by Organization Details LastModified Time Mother Malignant neoplasm of cervix uteri [email or web address] Not available 14:03:42 Mother Endometrial carcinoma [email or web address] Not available 04/10 11:52:42 Maternal Grandmother Malignant neoplasm of ovary [email or web address] Not available 2024 10:49:30 Maternal Aunt Malignant neoplasm of breast [email or web address] Not available 04/09 14:04:11 Maternal Aunt Diabetes mellitus [email or web address] Not available 04/09 14:04:22 Father Malignant neoplasm of prostate [email or web address] Not available 05/22 15:37:05 Notes:Maternal aunt: Diabete s mellitus, Cancer, breast Maternal grandmother: Ovarian cancer Mother: Cervical cancer Medical History Condition Response Allergies (Food, seasonal, environmental ) N Other Y Breast Cancer N Drug/Latex Allergies/Reactions N Blood Transfusion N Lung Disease N Dermatologic Disorders N Defects or Inherited Disease N Breast Problem N Gestational Diabetes N Hematologic disorders N Anesthesia Complications N History of STI N Deep Vein Thrombosis N Polycystic ovary syndrome N Anxiety Disorder N Autoimmune disease N Arthritis N Polyps N Infertility N History of abnormal pap N Acid Reflux (GERD) Y Cancer N Varicosities N Stroke N Neurologic/Epilepsy N Endometriosis N High Cholesterol N Fibromyalgia N Headaches N Kidney Disease N Heart Problems N Kidney or Bladder Problems N Thyroid Problems Y GI Problems Y Eating Disorder N Anemia N Art (IVF or FET) N Psychiatric Illness N Ovarian Cancer N Diabetes N Pulmonary (TB, Asthma) N Hepatitis/Liver Disease N No Past Medical History N Eczema N Urinary Tract Infection N Abuse/Domestic Violence N Asthma N Trauma/Violence N Depression/ depression N Heart Disease N Pre-Eclampsia N Hypertension Y Osteoporosis N Thrombophilias N Gynecological History Statement/Question Response Abnormal Pap N Date of Last Mammogram 06/02/2025 Date of LMP 09/21/2014 STIs/STDs N HPV Vaccine N Current Control Method Menopause Date of Last Colonoscopy 09/21/2023 Most Recent Bone Density Sexually Active? Y Menses Monthly N Date of DEXA bone scan Date of Last Pap Smear 11/23/2024 Sexual Problems? Y LMP Unknown Obstetrics History GPAL:G 3 P 2 0 1 2 Type Value Full Term 2 Induced 1 Living 2 Total 3 Past Encounters Encounter ID Performer Location Encounter Start Date Encounter Closed Date Diagnosis/Indication Diagnosis SNOMED-CT Code Diagnosis ICD10 Code Diagnosis IMO Codes Diagnosis Note [id number] Monalisa Leigh CNM [place] [address] [address] 03/18/2021 10:28:38 03/18/2021 23:19:18 Urinary tract infectious disease 39324395 N39.0 Urinary symptoms 7160682 08 R39.9 [id number] Yadira Knox [facility] [address],[place] [address] 04/10/2021 09:25:12 04/10/2021 10:21:19 Gynecologic examination 16520127 Z01.419 [id number] Yadira Knox [facility] [address],[place] [address] 04/25/2022 14:25:42 04/25/2022 15:04:08 Gynecologic examination 97271907 Z01.419 Z11.51 IUD check 650069020 Z30. 431 with cramping Menopausal symptom 78225 002 N95.1 [id number] Len Mina MD [place] [address],[place] [address] 05/06/2022 17:03:34 05/06/2022 17:38:20 Pain in pelvis 13582882 R10.2 T83.39XS [id number] Yadira Knox [facility] [address],[place] [address] 05/29/2023 09:18:22 05/29/2023 12:25:49 Gynecologic examination 69143599 Z01.419 Z11.51 [id number] Yadira Knox [facility] [address],[place] [address] 11/23/2024 15:56:38 11/23/2024 16:58:53 Atrophic vaginitis 40675257 N95.2 Gynecologi c examination 43446859 Z01.419 Z11.51 [id number] Yadira Knox [facility] [address],[place] [address] 03/01/2025 10:49:27 03/01/2025 11:26:27 Menopausal flushing 602755525 N95.1 739113 do not take estrogen without progestero ne , can lead to endometria l cancer Menopausal symptom 79000 002 N95.1 [id number] reviewed risks and benefits of estrogen/p yanelis/test therapy. increased risk of blood clots, stroke, [place] possible increased risk of breast cancerwill monitor testostero ne with blood levelsf/u 3 mo med check, call if any adverse side effects Fatigue 22387519 R53.83 [id number] Reduced libido 7052345 R 68.82 [id number] [facility] [address] [address] 06/07/2025 15:37:01 06/07/2025 16:53:33 Menopause present 064180541 Z78.0 93333 draw labs, plan to compare to last labs and will change medication as needed Fatigue 73884489 R53.83 [id number] Reduced libido 8125892 R 68.82 968093 will continue testostero ne dose dependent on labs Health Concerns Section Related Observation LastModified by Organization Detai ls LastModified Time None Recorded Concern Status LastModified by Organization Details LastModified Time None Recorded Advance Directives Directive N: Payers Insurance Date Sequence Insurance Name Policy Number Policy Cano Covered Member ID Cano Member ID Guarantor Name 06/04/2025 1 [facility] (MEDICAID HMO) [id number] Corine Cooper [id number] Corine Cooper Notes Date Note Type Note Provider Name and Address Organization Details Recorded Time 3 text/html Annual GYNReported by PatientHistoryFor history, patient reportsno gynecologic complaints.Genitourinar y symptomsFor menstrual cycle, patient reportsnormal menses. For urinary symptoms, patient reportsno hematuriaandno incontinence. For vulva, patient reportsno genital lesion. For vagina, patient reportsnormal vaginal discharge.Breast symptomsFor breast, patient reportsno breast pain,no breast lump, andno nipple discharge.Endocrine symptomsFor sexual complaints, patient reportsno sexual complaints,no pain during intercourse, andnormal libido. For menopausal symptoms, patient reportsno menopausal symptomsandnormal vaginal lubrication.Psychologic al symptomsFor psychological symptoms, patient reportsno depression,no anxiety, andno pmdd.Preventative measuresFor preventive measures, patient reportsencourage self breast examination.labs show menopause, wants to keep IUD in place [place] call [place]going [place] noted in the HPI Yadira Knox, MARYAM [address], [place], [address], [facility] 05/29/2023 12:04:54 5 text/html Annual GYNReported by PatientHistoryFor history, patient reportsno gynecologic complaints(menopausal labs last year, still has iud).Genitourinary symptomsFor menstrual cycle, patient reportsnormal menses. For urinary symptoms, patient reportsno hematuriaandno incontinence. For vulva, patient reportsno genital lesion. For vagina, patient reportsnormal vaginal discharge.Breast symptomsFor breast, patient reportsno breast pain,no breast lump, andno nipple discharge(due for mammogram).Endocrine symptomsFor sexual complaints, patient reportssexual complaints,pain during intercourse, anddecreased libido. For menopausal symptoms, patient reportshot flashesandinsomnia due to night sweatsbut reportsnormal vaginal lubrication.Psychologic al symptomsFor psychological symptoms, patient reportsno depression,no anxiety, andno pmdd.Preventative measuresFor preventive measures, patient reportsencourage self breast examination,encourage regular exercise,encourage no tobacco use,encourage regular mammograms starting age 40,needs to schedule mammogram, andup to date on colonoscopy screening.recently has gastric bypass lost 50 lbs, hair thinning, skin laxity, libido better but dry/pain, using KY as lubricant, hot flashes night sweats, 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 Mya edwards, [facility] 11/23/2024 21:23:20 5 text/html ROS as noted in the HPI pt has complaints of sleeplessness, fatigue, hot flashes and no libido, all sxs have worsened in the last year or two, iud removed a couple months ago due to labs showing menopause. has had no bleeding.has seen cardiology, pcp, bp managed well on medication. has had hx of gastric bypass. 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 03/01/2025 11:26:19 5 text/html ROS as noted in the HPI med check menopause sxsno hot flashesdecreased libido no improvementfatigue worsealso working with pcp and GI would like to see more improvement Yadira Knox CNM [address], [place], [address], [facility] 06/07/2025 16:50:01 OBGyn Episode Ob Episode Information Episode Created Date Number of Fetuses Patient Bloodtype Patient rh Status Prepregnancy Weight lbs Domestic Partner Domestic Partner Phone Father Name Polish Compounder Status 04/09/20 21 1 CLOSED Fetus Data First Name Last Name Admitted to NICU Weight (g) Sex Living Outcome Pediatric Complications Fetus ID Race Codes Race Delivery Type 3968.93 M Full Term [id number] Primary Chris Calculation Initial Chris Date Initial Exam Date Initial Exam Provider Initial Ultrasound Date Last Menstrual Period Date Ultra Sound Weeks Gestation 0 Eighteen To Twenty Week Chris Update Ultra Sound Date Fundal Height At Umbil Quickening Date Ultra Sound Latest Weeks Gestation Final Chris Confirmed By Final Chris Confirmed Date Final Chris Date Ultra Sound Latest Days Gestation 0 0 Menstrual History Last Menstrual Date Menses Monthly On Bcp Conception Prior Menses Frequency Hcg Plus Date Menarche Onset Age Delivery Information Delivery Date Delivery Type Labor Anesthesia Weeks Gestation Incision Type Labor Labor Length Hrs Delivered By Post Complications Tubal Sterilization Discharge Date Comments 7 42 Discharge Information Feeding Method Contraceptive Method Maternal HG B and HCT Levels Ob Episode Information Episode Created Date Number of Fetuses Patient Bloodtype Patient rh Status Prepregnancy Weight lbs Domestic Partner Domestic Partner Phone Father Name Polish Compounder Status 04/09/20 21 1 CLOSED Fetus Data First Name Last Name Admitted to NICU Weight (g) Sex Living Outcome Pediatric Complications Fetus ID Race Codes Race Delivery Type 3061.74 6 F Full Term [id number] Repeat Chris Calculation Initial Chris Date Initial Exam Date Initial Exam Provider Initial Ultrasound Date Last Menstrual Period Date Ultra Sound Weeks Gestation 0 Eighteen To Twenty Week Chris Update Ultra Sound Date Fundal Height At Umbil Quickening Date Ultra Sound Latest Weeks Gestation Final Chris Confirmed By Final Chris Confirmed Date Final Chris Date Ultra Sound Latest Days Gestation 0 0 Menstrual History Last Menstrual Date Menses Monthly On Bcp Conception Prior Menses Frequency Hcg Plus Date Menarche Onset Age Delivery Information Delivery Date Delivery Type Labor Anesthesia Weeks Gestation Incision Type Labor Labor Length Hrs Delivered By Post Complications Tubal Sterilization Discharge Date Comments 1 38 Discharge Information Feeding Method Contraceptive Method Maternal HG B and HCT Levels Ob Episode Information Episode Created Date Number of Fetuses Patient Bloodtype Patient rh Status Prepregnancy Weight lbs Domestic Partner Domestic Partner Phone Father Name Polish Compounder Status 04/09/20 21 1 CLOSED Fetus Data First Name Last Name Admitted to NICU Weight (g) Sex Living Outcome Pediatric Complications Fetus ID Race Codes Race Delivery Type , Induced [id number] Chris Calculation Initial Chris Date Initial Exam Date Initial Exam Provider Initial Ultrasound Date Last Menstrual Period Date Ultra Sound Weeks Gestation 0 Eighteen To Twenty Week Chris Update Ultra Sound Date Fundal Height At Umbil Quickening Date Ultra Sound Latest Weeks Gestation Final Chris Confirmed By Final Chris Confirmed Date Final Chris Date Ultra Sound Latest Days Gestation 0 0 Menstrual History Last Menstrual Date Menses Monthly On Bcp Conception Prior Menses Frequency Hcg Plus Date Menarche Onset Age Delivery Information Delivery Date Delivery Type Labor Anesthesia Weeks Gestation Incision Type Labor Labor Length Hrs Delivered By Post Complications Tubal Sterilization Discharge Date Comments 7 Discharge Information Feeding Method Contraceptive Method Maternal HG B and HCT Levels
--- OUTSIDE RECORDS SUMMARY | 2025-07-17 14:57 | XMS_ITS | Encounter Summary ---
Author Organization [facility] Address [address] [place] [address] Phone Care Team Providers Care Advanced Manufacturing Technician Name Role Phone Maria Luisa Turpin NP Primary Care Provider [phone] Maria Luisa Turpin NP Primary Care Provider [phone] Maria Luisa Turpin BUSINESS QUALITY ASSURANCE ANALYST Unavailable [phone] Debbie Rhodes MD Unavailable [phone] Erlinda Gonzalez NP Unavailable Alta Zheng RN Unavailable Unavaila Bryant Sesay MD Unavailable [phone] Alex Caldwell MD Unavailable Joaquín Starr MD Unavailable Encounter Details Date Type Department Care Team (Late st Contact Info) Description 09/07/2023 Orders Only [facility] Scanning, Provider Social History Tobacco Use Types Packs/Day Years Used Date Smoking Tobacco: Former Smokeless Tobacco: Never Personal Safety Answer Date Recorded Getting School Help Needed Not on file 09/07 Comments Unknown Sex and Gender Information Value Date Recorded Sex Assigned at Not on file Legal Sex Female 12:12 PM CARD LACER JACQUARD Gender Identity Female 06/16/2025 6:17 AM CDT Sexual Orientation Straight 09/21/2023 6: 33 PM CARD LACER JACQUARD documented as of this encounter Plan of Treatment Upcoming Encounters Date Type Department Care Team (Latest Contact Info) Description 09/11/2025 7:30 AM CARD LACER JACQUARD Hospital Encounter [facility] Operating Room [address] [place] [address] Mart Pierre MD [address] [facility] [phone] [place] [address] 09/11/2025 7:30 AM CARD LACER JACQUARD - 09/11/2025 10:10 AM CARD LACER JACQUARD Surgery [facility] Operating Room [address] [place] [id number] Mart Pierre MD [address] [facility] [phone] [place] [address] REPAIR INGUINAL HERNIA Scheduled Procedures Name Priority Associated Diagnoses Date/Ti me REPAIR INGUINAL HERNIA Non-recurrent unilateral inguinal hernia without obstruction or gangrene 09/11/2025 7:30 AM CARD LACER JACQUARD COLONOSCOPY GE junction carcinoma (HCC) documented as of this encounter Procedures Procedure Name Priority Date/Time Associated Diagnosis Comments SCAN - PATHOLOGY 09/07/2023 documented in this encounter Results * SCAN - PATHOLOGY (09/07/2023) us Provider Scanning Final Result documented in this encounter Visit Diagnoses Not on filedocumented in this encounter Care Teams Advanced Manufacturing Technician Relationship Specialty Start Date End Date Maria Luisa Turpin NP [address] [place] [address] PCP - General Family Medicine 12/14/24 02/13/25 Maria Luisa Turpin NP [address] [place] [address] PCP - General Family Medicine 02/14/25 Maria Luisa Turpin NP [address] [place] [address] Family Medicine 02/14/25 Debbie Rhodes MD [address] [place] [address] Referring Physician General Surgery 09/15/23 Erlinda Gonzalez NP [address] [place] [address] Nurse Practitioner Nurse Practitioner 09/15/23 Alta Zheng, veterans rehabilitation counselor Prehabilitation and Readiness (SPAR) Coordinator General Surgery 10/26/23 03/24/24 Bryant Joaquin MD [address] [facility] [phone] [place] [address] Surgeon Colon and Rectal Surgery 11/06/23 Alex Caldwell MD [address] [facility] [phone] [place] [address] Surgeon Thoracic Surgery 11/06/23 Joaquín Starr MD [address] [facility] [phone] [place] [address] Strickler Attendant Gastroenterology 11/06/23 documented as of this encounter
--- OUTSIDE RECORDS SUMMARY | 2025-07-17 14:57 | XMS_ITS | Clinical Summary ---
Author Organization [facility] Address [address] [address] Care Team Providers Care Building Repair Maintenance Supervisor Name Role Phone Shankar Jimenez MD Primary Care Provider [phone] Source Comments [facility],non-owned Affiliates and Associated Physician Practices is amultiple site organization consisting of ambulatory clinics and hospital sitesin [place], [place], [place] and [place]. This disclosure is being madepursuant to the Care Everywhere program and may not contain all information available regarding this patient. Last updated 18.[employer] Allergies Active Allergy Reactions Criticality Noted Date Comments Ibuprofen Other Medium 07/04/2014 Pt has had gastric sleeve Acetaminophen Rash Medium 10/21/2018 Patient states she takes Tylenol with no problem Medications * Be aware that medications may not be up to date on this document. Alwaysverify current medications with the patient. levonorgestrel (MIRENA) 20 MCG/24HR IUD by Intrauterine route as needed 5 Active multivitamins plus minerals chew tablet Take 1 (one) tablet by mouth 2 times daily Active ascorbic acid (VITAMIN C) 500 MG tablet Take 8 (eight) tablets by mouth once daily Active cetirizine (ALL DAY ALLERGY) 10 MG gel capsule Take 1 (one) capsule by mouth 2 times daily Active Calcium Citrate-Vitamin D (CALCIUM CITRATE + D3 PO) Take by mouth once daily Active levothyroxine (SYNTHROID) 50 MCG tablet Take 1 (one) tablet by mouth daily before breakfast 2 Active losartan (Cozaar) 25 MG tablet Take 1 (one) tablet by mouth once daily 3 Active venlafaxine XR 24hr (Effexor XR) 37.5 MG capsule 4 Active omeprazole (PriLOSEC) 40 MG capsuleIndicatio ns:Gastro-esopha geal reflux disease without esophagitis,S/P laparoscopic sleeve gastrectomy,Hiat al hernia TAKE 1 CAPSULE BY MOUTH 2 TIMES DAILY, BEFORE BREAKFAST AND SUPPER 60 capsule 4 Active ursodiol (Actigall) 300 MG capsule Take 1 (one) capsule by mouth 2 times daily Active azelastine (Astelin) 0.1 % nasal spray [place] 1 (one) spray to 2 (two) sprays into each nostril 2 times daily 30 mL 11 4 Active mometasone (Nasonex) 50 MCG/ACT nasal spray [place] 1 (one) spray into each nostril 2 times daily 17 g 11 4 Active Active Problems Problem Noted Date Diagnosed Date Actinic keratosis 09/24/2022 Varicose veins of lower extremity 07/29/2022 Abdominal pannus 07/30/2021 BMI 31.0-31.9,adult 07/02/2021 S/P laparoscopic sleeve gastrectomy 07/02/2021 High risk medications (not anticoagulants) long- term use 10/23/2019 Class 1 obesity due to exces s calories without serious comorbidity with body mass index (BMI) of 31.0 to 31.9 in adult 06/21/2019 Other psoriasis 11/04/2018 Actinic lentigo 11/04/2018 Other rosacea 11/04/2018 Seborrheic keratosis 11/04/2018 Carbuncle 03/05/2018 Peripheral edema 04/21/2016 Acne vulgaris 08/30/2015 Onychomycosis 02/26/2015 Chronic rhinitis 07/04/2014 Immunizations Immunization Administration Dates Next Due INFLUENZA VACCINE 06/20/2019 Family History Medical History Relation Name Comments High Cholesterol Father Hypertension Father High Cholesterol Maternal Grandfather Cancer Mother lymphoma Relation Name Status Comments Father Maternal Grandfather Mother Social History Tobacco Use Types Packs/Day Years Used Date Smoking Tobacco: Former Cigarettes Q uit: 2005 Smokeless Tobacco: Never Tobacco Cessation:Counseling Given: Not Answered Alcohol Use Standard Drinks/Week Comments No 0 (1 standard drink = 0.6 oz pur e alcohol) OCC AUDIT-C Answer Date Recorded Q1: How often do you have a drink containing alcohol? Never 09/07/2023 Q2: How many drinks containi ng alcohol do you have on a typical day when you are drinking? Patient does not drink Q3: How often do you have si x or more drinks on one occasion? Never 09/07/2023 PHQ-2 Answer Date Recorded Patient Health Questionnaire-2 Score 2 05/20/2024 Comments No Sex and Gender Information Value Date Recorded Sex Assigned at Female 07/22/2021 8:30 AM CDT Legal Sex Female 6:20 PM SENIOR MANAGER [employer]ITIONS Gender Identity Female 07/22/2021 8:30 AM CDT Sexual Orientation Straight 08/18/2021 2: 02 PM SENIOR MANAGER [employer] Last Filed Vital Signs Vital Sign Reading Time Taken Comments Blood Pressure 157/94 05/20/2024 10:43 AM CDT Pulse 71 05/20/2024 10:43 AM CDT Temperature 36.4 C (97.5 F) 05/20/2024 10:43 AM CDT Respiratory Rate 18 02/18/2024 8:12 AM CDT Oxygen Saturation 98% 05/20/2024 10:43 AM CDT Inhaled Oxygen Concentration - - Weight 89.8 kg (198 lb) 05/20/2024 10:43 AM CDT Height 165.1 cm (5' 5) 05/20/2024 10:43 AM CDT Body Mass Index 32.95 05/20/2024 10:43 AM CDT Plan of Treatment Health Maintenance Due Date Last Done Comments COLOGUARD (AGES 45-75) - COLON CA SCREENING 1969 CT COLONOGRAPHY - COLON CA SCREENING 1969 FIT - COLON CA SCREENING 1969 FLEX SIG - COLON CA SCREENING 1969 MAMMOGRAM 1969 HIV SCREENING 1984 HEPATITIS C SCREENING 06/19/1987 DTAP/TDAP/TD VACCINES (1 - Tdap) 1988 HEPATITIS B VACCINE (1 of 3 - 19+ 3-dose series) 1988 PAP with HPV 1999 PNEUMOCOCCAL VACCINE 50+ (1 of 1 - PCV) 2019 ZOSTER VACCINE (1 of 2) 2019 DEPRESSION SCREENING 09/21/2024 02/18/2024 COVID-19 VACCINE (1 - season) 2025 INFLUENZA VACCINE (#1) 2025 3, 08/29/2020, 06/20/2019, Additional history exists SCREENING FOR DIABETES 07/17/2026 3, 08/29/2022, 08/29/2022, Additional history exists LIPID TESTING 07/17/2028 07/17/2023, 12/0 05/2022, 07/09/2021, Additional history exists COLON MONITORING 10/13/2033 10/13/2023, 11/24/2018 COLONOSCOPY - COLON CA SCREENING 10/13/2033 10/13/2023, 11/24/2018 Colorectal Cancer Screening 10/13/2033 HIB VACCINE Aged Out No longer eligi ble based on patient's age to complete this topic HPV VACCINE Aged Out No longer eligi ble based on patient's age to complete this topic MENINGOCOCCAL (Group B) VACCINE SHARED DECISION-MAKING Aged Out No longer eligible based on patient's age to complete this topic MENINGOCOCCAL GROUPS A/C/Y/W VACCINE Aged Out No longer eligible based on patient's age to complete this topic Medical Devices Implanted Type Area Typer Device Identifier Shelf Expiration Date Model / Serial / Lot Kit Tissue Clsr Duo Tssl 1 Prefl Syr Implanted:Qty: 1 on 06/21/2019 by Debbie Rhodes MD at [facility] VHX 12/19/2020 [id number] / / [id number] Procedures Procedure Name Priority Date/Time Associated Diagnosis Comments COMPREHENSIVE METABOLIC PANEL Routine 07/17/2023 9:39 AM CDT Class 1 obesity due to excess calories with serious comorbidity and body mass index (BMI) of 30.0 to 30.9 in adult S/P laparoscopic sleeve gastrectomy Hiatal hernia Intestinal malabsorption following gastrectomy LIPID PROFILE Routine 07/17/2023 9:39 AM CDT Class 1 obesity due to excess calories with serious comorbidity and body mass index (BMI) of 30.0 to 30.9 in adult S/P laparoscopic sleeve gastrectomy Hiatal hernia Intestinal malabsorption following gastrectomy from Last 3 Months or Most Recently Relevant to Health Maintenance Results * (ABNORMAL) COMPREHENSIVE METABOLIC PANEL (07/17/2023 9:39 AM CDT) [facility] Glucose 99 70 - 125 mg/dL 07/17/2023 10:17 AM [facility] Sodium 141 136 - 145 mmol/L 07/17/2023 10:17 AM [facility] Potassium 4.0 3.4 - 5.1 mmol/L 07/17/2023 10:17 AM [facility] Chloride 109(H) 98 - 107 mmol/L 07/17/2023 10:17 AM T [facility] CO2 25 22 - 29 mmol/L 07/17/2023 10:17 AM [facility] Calcium 9.55 8.4 - 10.2 mg/dL 07/17/2023 10:17 AM [facility] Anion Gap 11 6 - 16 mmol/L 07/17/2023 10:17 AM [facility] BUN 10.7 9.8 - 20.1 mg/dL 07/17/2023 10:17 AM [facility] Creatinine 0.85 0.57 - 1.11 mg/dL 07/17/2023 10:17 AM [facility] Alkaline Phosphatase 73 40 - 150 U/L 07/17/2023 10:17 AM [facility] ALT 16 <=55 U/L 07/17/2023 10:17 AM [facility] AST 22 5 - 34 U/L 07/17/2023 10:17 AM [facility] Protein Total 7.1 6.4 - 8.3 gm/dL 07/17/2023 10:17 AM [facility] Albumin 3.9 3.4 - 4.8 gm/dL 07/17/2023 10:17 AM [facility] Globulin Total 3.2 2.6 - 4.0 gm/dL 07/17/2023 10:17 AM [facility] Albumin/Globulin Ratio 1.2 0.9 - 1.6 07/17/2023 10:17 AM [facility] Bilirubin Total 0.6 0.2 - 1.2 mg/dL 07/17/2023 10:17 AM CDT [facility] eGFR 81(L) >90 mL/min/1.7 3m2 07/17/2023 10:17 AM CDT [facility] Comment:The GFR result was c alculated using the updated CKD-EPI Creatinine Equation (2020). Blood BLOOD SPECIMEN / Unknown Lab Venipuncture / Unknown 07/17/2023 9:39 AM CDT 07/17/2023 9:54 AM CDT us Sumi Bales LEGEND MAKER-ELECTROPHONIC ENGINEER LAB - CHEMISTRY ORDERABL ES Final Result Performing Organization Address City/State/[facility] Co de Phone Number [facility] [address] * LIPID PROFILE (07/17/2023 9:39 AM CDT) Pathologist [facility] Cholesterol 195 <200 mg/dL 07/17/2023 10:17 AM CDT [facility] Triglycerides 56 <150 mg/dL 07/17/2023 10:17 AM CDT [facility] HDL Cholesterol 73 >40 mg/dL 3 10:17 AM CDT [facility] Chol HDL Ratio 2.7 1.0 - 6.0 07/17/2023 10:17 AM CDT [facility] LDL Calculated 111 65 - 130 mg/dL 07/17/2023 10:17 AM CDT [facility] VLDL Calculated 11 <=30 mg/dL 3 10:17 AM CDT [facility] Blood BLOOD SPECIMEN / Unknown Lab Venipuncture / Unknown 07/17/2023 9:39 AM CDT 07/17/2023 9:54 AM CDT Narrative [facility] - 07/17/2023 10:17 AM CDT Lipid Profile Comment: CHOLESTEROL LEVEL..................CLINICAL INTERPRETATION LESS THAN 200 MG/DL..............................DESIRABLE 200-239 MG/DL..............................BORDERLINE HIGH GREATER THAN 240 MG/DL................................HIGH LDL-CHOLESTEROL LEVEL..............CLINICAL INTERPRETATION LESS THAN 100 MG/DL................................OPTIMAL 100-129 MG/DL.................................NEAR OPTIMAL GREATER THAN 160 MG/DL...........................HIGH RISK HDL RISK LEVEL GREATER THEN 60 MG/DL............................DECREASED 40-60 MG/DL........................................AVERAGE LESS THAN 40 MG/DL...............................INCREASED TRIGLYCERIDE LEVEL..................CLINICAL INTERPRETATION LESS THAN 150 MG/DL...............................DESIRABLE 150-199 MG/DL...............................BORDERLINE HIGH 200-499 MG/DL..........................................HIGH GREATER THAN 500..................................VERY HIGH THE NATIONAL CHOLESTEROL EDUCATION PROGRAM HAS SET THE ABOVE GUIDELINES (REFERANCE VALUES) FOR CHOLESTEROL AND HDL. RISK ASSOCIATED WITH CHOLESTEROL/HDL RATIOS RISK....................MALE RATIO.............FEMALE RATIO 1/2 AVERAGE.................<3.4.......................<3.3 LOW RISK.................... 4.0 ...................... 3.8 AVERAGE..................... 5.0 ...................... 4.5 2X AVERAGE.................. 9.5 ...................... 7.0 3X AVERAGE...................>23........................>11 Sumi Bales LEGEND MAKER-ELECTROPHONIC ENGINEER LAB - CHEMISTRY ORDERABL ES Final Result Performing Organization Address [facility]/State/[facility] de Phone Number [facility] [address] from Last 3 Months or Most Recently Relevant to Health Maintenance Insurance [facility] Advance Directives * Full Code (Latest Code Status on File) Date Activated Date Inactivated Comments 07/30/2021 3:58 PM 07/31/2021 3:55 PM Care Teams Building Repair Maintenance Supervisor Relationship Specialty Start Date End Date Shankar Jimenez MD [address] [address] PCP - General Emergency Medicine 07/09/21
--- OUTSIDE RECORDS SUMMARY | 2025-07-17 14:57 | XMS_ITS | Encounter Summary ---
Author Organization [facility] Address [address] [place] [address] Phone Care Team Providers Care Assessment Analyst Name Role Phone Shankar Jimenez MD Primary Care Provider [phone] Maribell Gomez MD Unavailable Lev Alvarez MD Unavailable [phone] Encounter Details Date Type Department Care Team (Late st Contact Info) Description 02/06/2025 Telephone [facility] [address] [address] Lev Alvarez MD [facility] [address] [address] Social History Tobacco Use Types Packs/Day Years Used Date Smoking Tobacco: Former Smokeless Tobacco: Never Alcohol Use Standard Drinks/Week Comments Not Currently 0 (1 standard drink = 0.6 oz pur e alcohol) Socially Sexually Active Control Partners Comments Yes Male Comments No Sex and Gender Information Value Date Recorded Sex Assigned at Female 09/18/2023 6:28 PM CIVIL ATTORNEY Legal Sex Female 1:12 PM CDT Gender Identity Female 09/18/2023 6:28 PM CIVIL ATTORNEY Sexual Orientation Straight 09/18/2023 6: 28 PM CIVIL ATTORNEY documented as of this encounter Plan of Treatment Not on file documented as of this encounter Visit Diagnoses Not on filedocumented in this encounter Care Teams Assessment Analyst Relationship Specialty Start Date End Date Shankar Jimenez MD [address] [place] [address] PCP - General Family Medicine 04/19/21 Maribell Gomez MD [address] [address] Consulting Physician Endocrinology 10/23/22 Lev Alvarez MD [address] [place] [phone] Consulting Physician Oncology 01/19/25 documented as of this encounter
--- OUTSIDE RECORDS SUMMARY | 2025-07-17 14:57 | XMS_ITS | Encounter Summary ---
Author Organization [facility] Address [address] [place] [address] Phone Care Team Providers Care Runway Model Name Role Phone Shankar Jimenez MD Primary Care Provider [phone] Maribell Gomez MD Unavailable Lev Alvarez MD Unavailable [phone] Reason for Visit * Reason Comments Medication Refill Encounter Details Date Type Department Care Team (Late st Contact Info) Description 04/20/2025 Refill [facility] - Endocrinology - [place] [address] [place] [address] Maribell Gomez MD [address] [address] Medication Refill Social History Tobacco Use Types Packs/Day Years Used Date Smoking Tobacco: Former Smokeless Tobacco: Never Alcohol Use Standard Drinks/Week Comments Not Currently 0 (1 standard drink = 0.6 oz pur e alcohol) Socially Sexually Active Control Partners Comments Yes Male Comments No Sex and Gender Information Value Date Recorded Sex Assigned at Female 09/18/2023 6:28 PM UNDERTAKER HELPER Legal Sex Female 1:12 PM CDT Gender Identity Female 09/18/2023 6:28 PM UNDERTAKER HELPER Sexual Orientation Straight 09/18/2023 6: 28 PM UNDERTAKER HELPER documented as of this encounter Plan of Treatment Not on file documented as of this encounter Visit Diagnoses Not on filedocumented in this encounter Care Teams Runway Model Relationship Specialty Start Date End Date Shankar Jimenez MD [address] [place] [address] PCP - General Family Medicine 04/19/21 Maribell Gomez MD [address] [phone] Consulting Physician Endocrinology 10/23/22 Lev Alvarez MD [address] [place] [phone] Consulting Physician Oncology 01/19/25 documented as of this encounter
--- OUTSIDE RECORDS SUMMARY | 2025-07-17 14:57 | XMS_ITS | Encounter Summary ---
Author Organization [facility] Address [address] [facility] [facility] [place] [address] Care Team Providers Care Dietary Aid Name Role Phone Shankar Jimenez MD Primary Care Provider [phone] Reason for Visit * Reason Onset Date Comments Referral 05/20/2022 Encounter Details Date Type Department Care Team (Late st Contact Info) Description 05/20/2022 Telephone [facility] [address] [place] [address], [place] [address] Laura Timmons PA [address] [place] [address] [address] [place] [id number] Referral Social History Tobacco Use Types Packs/Day Years Used Date Smoking Tobacco: Former Cigarettes Q uit: 2004 Smokeless Tobacco: Never Alcohol Use Standard Drinks/Week Comments No 0 (1 standard drink = 0.6 oz pur e alcohol) OCC Comments No Sex and Gender Information Value Date Recorded Sex Assigned at Female 07/22/2021 8:30 AM CDT Legal Sex Female 6:20 PM ADMITTING COORDINATOR Gender Identity Female 07/22/2021 8:30 AM CDT Sexual Orientation Straight 08/18/2021 2: 02 PM ADMITTING COORDINATOR documented as of this encounter Functional Status * Is person deaf or have serious hearing difficulty? Answer Date of Assessment Author No 03/28/2022 9:17 AM CDT Gerber Burkett RN * Is person blind or have serious difficulty seeing? Answer Date of Assessment Author No 03/28/2022 9:17 AM Gerber Waters RN * Does person have serious difficulty walking/climbing stairs? Answer Date of Assessment Author No 03/28/2022 9:17 AM Gerber Waters RN * Does person have difficulty dressing/bathing? Answer Date of Assessment Author No 03/28/2022 9:17 AM Gerber Waters RN * Does person have difficulty doing errands alone? Answer Date of Assessment Author No 03/28/2022 9:17 AM Gerber Waters RN documented as of this encounter Mental Status * Does person have difficulty concentrating/remembering/making decisions? 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
--- OUTSIDE RECORDS SUMMARY | 2025-07-17 14:57 | XMS_ITS | Encounter Summary ---
Author Organization [facility] Address [address] [facility] [address] [place] [address] Phone Care Team Providers Care Associate Professor Of Chemistry Name Role Phone Maria Luisa Turpin NP Primary Care Provider Maria Luisa Turpin NP Unavailable Debbie Rhodes MD Unavailable Erlinda Gonzalez NP Unavailable Bryant Joaquin MD Unavailable [phone] Alex Caldwell MD Unavailable Joaquín Starr MD Unavailable Encounter Details Date Type Department Care Team (Late st Contact Info) Description 06/09/2025 Results Follow-Up [facility] Minimally Invasive Surgery [facility] Medical Office Building [address] [place] [address] Bryant Li NP [address] [facility] [phone] [place] [address] Vitamin D 25 hydroxy, Vitamin B12, PTH, Additional followed-up results: 9 Social History Tobacco Use Types Packs/Day Years Used Date Smoking Tobacco: Former Cigarettes Q uit: 1995 Passive Smoke Exposure: Never Smokeless Tobacco: Never AUDIT-C Answer Date Recorded Q1: How often do you have a drink containing alc ohol? Monthly or less 03/15/2025 Q2: How many drinks containi ng alcohol do you have on a typical day when you are drinking? 1 or 2 03/15/2025 Q3: How often do you have si x or more drinks on one occasion? Never 03/15/2025 Personal Safety Answer Date Recorded Have you ever been in or are you currently in a harmful physical or emotional relationship or is someone making you feel afraid or unsafe? Denies 02/20/2025 Comments No Sex and Gender Information Value Date Recorded Sex Assigned at Not on file Legal Sex Female 12:12 PM SOFTWARE IMPLEMENTATION PROJECT MANAGER Gender Identity Female 06/16/2025 6:17 AM CDT Sexual Orientation Straight 09/21/2023 6: 33 PM SOFTWARE IMPLEMENTATION PROJECT MANAGER documented as of this encounter Plan of Treatment Upcoming Encounters Date Type Department Care Team (Latest Contact Info) Description 09/11/2025 7:30 AM SOFTWARE IMPLEMENTATION PROJECT MANAGER Hospital Encounter [facility] Operating Room [address] [place] [address] Mart Pierre MD [address] [facility] [id number] [place] [address] 09/11/2025 7:30 AM SOFTWARE IMPLEMENTATION PROJECT MANAGER - 09/11/2025 10:10 AM SOFTWARE IMPLEMENTATION PROJECT MANAGER Surgery [facility] Operating Room [address] [place] [address] Mart Pierre MD [address] [facility] [phone] [place] [address] REPAIR INGUINAL HERNIA Scheduled Procedures Name Priority Associated Diagnoses Date/Ti la REPAIR INGUINAL HERNIA Non-recurrent unilateral inguinal hernia without obstruction or gangrene 09/11/2025 7:30 AM SOFTWARE IMPLEMENTATION PROJECT MANAGER COLONOSCOPY GE junction carcinoma (HCC) documented as of this encounter Visit Diagnoses Not on filedocumented in this encounter Care Teams Associate Professor Of Chemistry Relationship Specialty Start Date End Date Maria Luisa Turpin NP [address] [place] [address] PCP - General Family Medicine 02/14/25 Maria Luisa Turpin NP [address] [place] [address] Family Medicine 02/14/25 Debbie Rhodes MD [address] [place] [address] Referring Physician General Surgery 09/15/23 Erlinda Gonzalez NP [address] [place] [address] Nurse Practitioner Nurse Practitioner 09/15/23 Bryant Joaquin MD [address] [facility] [phone] [place] [address] Surgeon Colon and Rectal Surgery 11/06/23 Alex Caldwell MD [address] [facility] [phone] [place] [address] Surgeon Thoracic Surgery 11/06/23 Joaquín Starr MD [address] [facility] [phone] [place] [address] Food And Drug Research Scientist Gastroenterology 11/06/23 documented as of this encounter
--- OUTSIDE RECORDS SUMMARY | 2025-07-17 14:57 | XMS_ITS | Encounter Summary ---
Author Organization [facility] Address [address] [place] [address] Care Team Providers Care Lead Rider Name Role Phone Shankar Jimenez MD Primary Care Provider Debora Gama APRN-HOT MILL WORKER Primary Care Provider + Shankar Jimenez MD Primary Care Provider [phone] Reason for Visit * Reason Onset Date Comments Med Question 03/31/2019 Encounter Details Date Type Department Care Team (Late st Contact Info) Description 03/31/2019 Telephone [facility] [address] [place] [address] Richard Dodd MD [address] [place] [address] Med Question Social History Tobacco Use Types Packs/Day Years Used Date Smoking Tobacco: Former Cigarettes Q uit: 2005 Smokeless Tobacco: Never Alcohol Use Standard Drinks/Week Comments Yes 0 (1 standard drink = 0.6 oz pur e alcohol) OCC Comments No Sex and Gender Information Value Date Recorded Sex Assigned at Female 07/22/2021 8:30 AM CDT Legal Sex Female 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 Answer Date of Assessment Author No 11/24/2018 9:39 AM Kyle Cleaning RN * Is person blind or have serious difficulty seeing? Answer Date of Assessment Author No 11/24/2018 9:39 AM Kyle Cleaning RN * Does person have serious difficulty walking/climbing stairs? Answer Date of Assessment Author No 11/24/2018 9:39 AM Kyle Cleaning RN * Does person have difficulty dressing/bathing? Answer Date of Assessment Author No 11/24/2018 9:39 AM Kyle Cleaning RN * Does person have difficulty doing errands alone? Answer Date of Assessment Author No 11/24/2018 9:39 AM Kyle Cleaning RN documented as of this encounter Mental Status * Does person have difficulty concentrating/remembering/making decisions? Answer Entry Date Author No 11/24/2018 9:39 AM Kyle Cleaning RN documented in this encounter Miscellaneous Notes * Telephone Encounter - Richard Dodd MD - 03/31/2019 12:16 PM CDT It looks like we re-submitted it after her [place] got straightened out. Has it been officiallydenied? I doubt they will cover anything else but maybe can try Otezla. Richard * Telephone Encounter - Ledy Fajardo - 03/31/2019 9:11 AM CDT Pt calling wanting to know if she can be prescribed a different med since they is such a struggle to get her on humira. Please advise. documented in this encounter Plan of Treatment Not on file documented as of this encounter Visit Diagnoses Not on filedocumented in this encounter Additional Health Concerns Infection Onset Date Last Indicated Resolved Time COVID-19 Under Investigation 08/05/2020 08/05/2020 08/06/2020 9:55 AM STILL OPERATOR COVID-19 Under Investigation 07/27/2021 07/27/2021 07/28/2021 9:17 AM STILL OPERATOR documented as of this encounter Care Teams Lead Rider Relationship Specialty Start Date End Date Shankar Jimenez MD [address] [phone] PCP - General Emergency Medicine 07/02/21 07/03/21 Debora Gama APRN-BILL [address] [place] [phone] PCP - General 07/04/21 07/08/21 Shankar Jimenez MD [address] [phone] PCP - General Emergency Medicine 07/09/21 documented as of this encounter
--- OUTSIDE RECORDS SUMMARY | 2025-07-17 14:57 | XMS_ITS | Clinical Summary ---
Author Organization [facility] Address [address] [place] [address] Care Team Providers Care Business Attorney Name Role Phone Maria Luisa Turpin NP Primary Care Provider [phone] Maria Luisa Turpin NP Unavailable [phone] Debbie Rhodes MD Unavailable Erlinda Gonzalez NP Unavailable Bryant Joaquin MD Unavailable [phone] Alex Caldwell MD Unavailable Joaquín Starr MD Unavailable Allergies Active Allergy Reactions Criticality Noted Date Comments Acetaminophen-Pamabrom Rash High 07/29/2022 Aspirin Rash Medium 07/30/2018 Rash Caffeine Rash Medium 07/30/2018 Rash Cinnamedrine Rash Medium 07/30/2018 Rash Ibuprofen Hives,Other (See comments) Medium 07/04/2014 Pt has had gastric sleeve Pamabrom Other (See comments) Low 09/28/2023 Pyrilamine Maleate Unknown 03/18/2015 Pyrilamine-Phenylephrin e Other (See comments) Low 09/28/2023 Medications ascorbic acid (VITAMIN C) 500 mg tablet,chewabl eIndications:s upplement Take 4 tablet/chew tab (2,000 mg total) by mouth every morning Active multivitamin (MULTIPLE VITAMINS ORAL)Indicatio ns:supplement Take 1 tablet by mouth 2 (two) times a day Active levothyroxine (SYNTHROID) 75 mcg tablet Take 1 tablet (75 mcg total) by mouth daily after lunch 4 Active cyanocobalamin , vitamin B-12, (VITAMIN B-12 ORAL)Indicatio ns:supplement Take 1 tablet by mouth every morning Active zinc gluconate 50 mg tabletIndicati ons:supplement Take 1 tablet (50 mg total) by mouth every morning Active azelastine (ASTELIN) 137 mcg (0.1 %) nasal spray Administer 1-2 sprays into affected nostril(s) 2 (two) times a day 4 Active biotin 10 mg tablet Active amLODIPine (NORVASC) 2.5 mg tablet Take 1 tablet (2.5 mg total) by mouth daily 5 Active calcium carbonate-vit D3-min 600 mg-10 mcg (400 unit) tablet Take 1 tablet by mouth daily Active progesterone (PROMETRIUM) 100 mg capsule Take 1 capsule (100 mg total) by mouth 5 Active estradioL (VIVELLE-DOT) 0.0375 mg/24 hr APPLY 1 PATCH TRANSDERMALLY TWICE A WEEK 5 Active testosterone micronized, bulk, 100 % powder 2 5 Active losartan (COZAAR) 100 mg tablet Take 1 tablet (100 mg total) by mouth daily 5 Active Contour Plus Blue Meter misc as directed 5 Active Active Problems Problem Noted Date Diagnosed Date Non-recurrent unilateral ing uinal hernia without obstruction or gangrene 06/19/2025 Right upper quadrant pain 06/16/2025 Abdominal wall bulge 06/16/2025 Right inguinal hernia 06/16/2025 Left knee pain 03/31/2025 Primary osteoarthritis of left knee 03/31/2025 Contusion of left knee 03/31/2025 Cigarette nicotine dependence in remission 12/14 Cataplexy 12/14/2024 Non-seasonal allergic rhinitis due to pollen History of sleeve gastrectomy 06/14/2024 Hiatal hernia with GERD 03/23/2024 GE junction carcinoma 10/23/2023 Hiatal hernia 09/25/2023 Snoring 09/30/2022 Actinic keratosis 09/24/2022 Varicose veins of lower extremity 07/29/2022 Abdominal pannus 07/30/2021 Overweight 10/22/2020 Obstructive sleep apnea 10/22/2020 Psychophysiological insomnia 10/22/2020 Fatigue 10/22/2020 Anxiety 10/22/2020 Palpitation 10/22/2020 Biliuria 11/08/2019 Overview (11/12/2023): Biliuria;Recorded Elsewhere: No Location: [facility] Source: EHR Chronic: N Practice ID: [id number] Billable Time: 01:00:00 PM Cyst of ovary 09/29/2019 Overview (11/12/2023): Unspecified ovarian cyst, unspecified side;Recorded Elsewhere: No Location: [facility] Source: EHR Chronic: N Practice ID: [id number] Billable Time: 01:00:00 PM Acetonuria 09/06/2019 Overview (11/12/2023): Acetonuria;Recorded Elsewhere: No Location: [facility] Source: EHR Chronic: N Practice ID: [id number] Billable Time: 01:30:00 PM Disorder of intrauterine contraceptive device Overview (11/12/2023): Mec compl of intrauterine contraceptive device, init encntr;Recorded Elsewhere: No Location: [facility] Source: EHR Chronic: N Practice ID: [id number] Billable Time: 09:45:00 AM Psoriasis vulgaris 06/13/2016 S/P gastric bypass 09/18/2015 Acne vulgaris 08/30/2015 Rosacea 08/30/2015 Acne 07/20/2015 Uses intrauterine device for control 03/19 Overview (11/12/2023): Surveillance of intrauterine contraceptive device;Recorded Elsewhere: No Location: [facility] Source: EHR Chronic: N Practice ID: [id number] Billable Time: 03:00:00 PM Onychomycosis 02/26/2015 Psoriasis 02/26/2015 Chronic rhinitis 07/04/2014 Hypertension 02/02/2013 Arthralgia of shoulder 08/08/2011 Resolved Problems Problem Noted Date Diagnosed Date Resolved Date Morbid obesity 05/21/2015 11/16/2024 Encounters Date Type Department Care Team Description 07/13/2025 8:05 AM CDT - 07/13/2025 11:59 PM CDT Hospital Encounter [address] [address] Discharge Disposition: Discharge to home or self care 07/13/2025 8:05 AM CDT - 07/13/2025 11:59 PM CDT Hospital Encounter [address] [address] Discharge Disposition: Discharge to home or self care 07/13/2025 8:05 AM CDT - 07/13/2025 11:59 PM CDT Hospital Encounter [address] [address] Discharge Disposition: Discharge to home or self care 07/13/2025 8:05 AM CDT - 07/13/2025 11:59 PM CDT Hospital Encounter [address] [address] Discharge Disposition: Discharge to home or self care 07/13/2025 8:04 AM CDT - 07/13/2025 11:59 PM CDT Hospital Encounter [address] [address] Discharge Disposition: Discharge to home or self care 07/13/2025 8:04 AM CDT - 07/13/2025 11:59 PM CDT Hospital Encounter [address] [address] Functional intestinal disorder Discharge Disposition: Discharge to home or self care 07/10/2025 12:19 PM CDT - 07/10/2025 11:59 PM CDT Hospital Encounter [address] [address] Discharge Disposition: Discharge to home or self care 07/10/2025 12:19 PM CDT - 07/10/2025 11:59 PM CDT Hospital Encounter [facility] [address] [place] [address] Discharge Disposition: Discharge to home or self care 07/10/2025 12:19 PM CDT - 07/10/2025 11:59 PM CDT Hospital Encounter [facility] [address] [place] [address] Right upper quadrant pain Discharge Disposition: Discharge to home or self care 06/16/2025 8:00 AM CDT Office Visit [facility] In[facility] Surgery [address], [place] [address] Mart Pierre MD Right inguinal hernia (Primary Dx); Abdominal wall bulge; Right upper quadrant pain; S/P gastric bypass; Bariatric surgery status 06/09/2025 Results Follow-Up [facility]ally [facility]vasive Surgery [address] [facility] [address] [place] [address] Bryant Li NP Vitamin D 25 hydroxy, Vitamin B12, PTH, Additional followed-up results: 9 06/08/2025 2:55 PM CDT Lab [facility] [address] [place] [address] Bariatric surgery status; Other specified intestinal malabsorption 06/08/2025 2:40 PM CDT Lab [facility] [address] [place] [address] 06/08/2025 2:25 PM CDT Lab [facility] [address] [place] [address] 06/06/2025 Orders Only [facility] [address] [place] [address] Lilly Ballard PA 06/01/2025 Orders Only [facility] [address] [place] [address] Maria Luisa Turpin NP 05/29/2025 Orders Only [facility] Medicine Surgery [address] [facility] [address] [place] [address] Judith Ly PA Abnormal finding on imaging of liver (Primary Dx) 05/24/2025 2:25 PM CDT - 05/24/2025 11:59 PM CDT Hospital Encounter [facility] [address] [place] [address] Left knee pain, unspecified chronicity Discharge Disposition: Discharge to home or self care 05/18/2025 2:30 PM CDT Office Visit [facility] Medicine [address] [place] [address] [address] [place] [address] Kevin Parker MD Rotator cuff tear arthropathy, right (Primary Dx); Complete tear of left rotator cuff, unspecified whether traumatic 05/16/2025 3:40 PM CDT Telemedicine [facility]ally Invasive Surgery [address] [place] [address] Medical Office [address] [place] [address] Bryant Li NP Bariatric surgery status (Primary Dx); Other specified intestinal malabsorption 05/11/2025 3:00 PM CDT - 05/11/2025 11:59 PM CDT Hospital Encounter [facility] [address] [place] [address] Right upper quadrant pain Discharge Disposition: Discharge to home or self care 04/25/2025 2:54 PM CDT - 04/25/2025 11:59 PM CDT Hospital Encounter [facility] Diagnostic Imaging [address] [place] [address] Chronic right shoulder pain Discharge Disposition: Discharge to home or self care 04/20/2025 Orders Only [facility] Medical [facility] Medicine [address] [place] [address] [address] [place] [address] Kevin Parker MD Chronic right shoulder pain (Primary Dx) from Last 3 Months Immunizations Immunization Administration Dates Next Due Hep A, Adult 04/21/2016,10/22/2015 Hep A, Unspecified 04/21/2016,10/22/2015 Influenza, Quadrivalent, Abbey l Culture-based MDCK, Antibiotic Free, Intramuscular 08/25/2018 Influenza, Quadrivalent, Spl it, Intramuscular 06/07/2019,07/22/2018 Influenza, Quadrivalent, Spl it, Preservative Free, Intramuscular 08/29/2020,07/22/2016,10/22/2015 Influenza, Unspecified 06/20/2019 Tdap 05/04/2019,07/19/2016 Surgical History Surgery Date Site/Laterality Comments STOMACH SURGERY 06/21/2019 - 07/21/2019 PANNICULECTOMY SKIN TAG REMOVAL SECTION 05/22/1997 - 06/20/199710/2000 x2 CORRECTION HAMMER TOE Right HERNIA REPAIR 05/22/2001 - 06/20/2001 PARTIAL GASTRECTOMY 04/27/2024 Jaqueline-en-Y gastrojejunostomy FLUORO GUIDED ASPIRATION SHOULDER RIGHT 03/23/2025 Right FLUORO GUIDED ASPIRATION SHOULDER RIGHT 04/25/2025 Right Medical History Medical History Date Comments Depression Gastric reflux Hiatal hernia High blood pressure Kidney stone Hypothyroidism Sleep apnea Esophageal cancer (HCC) Chronic constipation Anxiety Family History Medical History Relation Name Comments Hypertension Father Family history of hypertension - (Added by TW Conv) Prostate cancer Father Ovarian cancer Maternal Grandmother Cancer Mother Family history of malignant neoplasm - (Added by TW Conv) Cervical cancer Mother Hypertension Mother Family history of hypertension - (Added by TW Conv) Anesthesia problems Neg Hx Relation Name Status Comments Father Alive Maternal Grandmother Mother Alive Social History Tobacco Use Types Packs/Day Years [...] on file Legal Sex Female 12:12 PM TEST ENGINEERING TECHNICIAN Gender Identity Female 06/16/2025 6:17 AM CDT Sexual Orientation Straight 09/21/2023 6: 33 PM TEST ENGINEERING TECHNICIAN Obstetrics History Last Filed Vital Signs Vital Sign Reading Time Taken Comments Blood Pressure 158/90 06/16/2025 7:34 AM CDT Pulse 59 06/16/2025 7:34 AM CDT Temperature 36.3 C (97.4 F) 06/16/2025 7:34 AM CDT Respiratory Rate 18 03/15/2025 9:15 AM CDT Oxygen Saturation 99% 03/15/2025 9:17 AM CDT Inhaled Oxygen Concentration - - Weight 66 kg (145 lb 9.6 oz) 06/16/2025 7:34 AM CDT Height 165.1 cm (5' 5) 06/16/2025 7:34 AM CDT Body Mass Index 24.23 06/16/2025 7:34 AM CDT Plan of Treatment Upcoming Encounters Date Type Department Care Team (Latest Contact Info) Description 09/11/2025 7:30 AM TEST ENGINEERING TECHNICIAN Hospital Encounter [facility] Operating [address] [place] [address] Mart Pierre MD [address] [facility] [id number] [place] [address] 09/11/2025 7:30 AM TEST ENGINEERING TECHNICIAN - 09/11/2025 10:10 AM TEST ENGINEERING TECHNICIAN Surgery [facility] [address] [place] [address] Mart Pierre MD [address] [facility] [id number] [place] [address] REPAIR INGUINAL HERNIA Scheduled Procedures Name Priority Associated Diagnoses Date/Ti me REPAIR INGUINAL HERNIA Non-recurrent unilateral inguinal hernia without obstruction or gangrene 09/11/2025 7:30 AM TEST ENGINEERING TECHNICIAN COLONOSCOPY GE junction carcinoma (HCC) Health Maintenance Due Date Last Done Comments Cervical Cancer Screening 1969 Depression Screening 1969 Hepatitis B Screening 1987 Regular Well Visit/Exam 18-64 1987 Zoster Vaccine (1 of 2) 2019 Breast Cancer Screening-Mammogram 07/18/2023 07/18/2022, 04/10/2021 Influenza Vaccine (#1) 2025 , 08/29/2020, 06/20/2019, Additional history exists DTaP/Tdap/Td Vaccine (3 - Td or Tdap) 05/04/2029 05/04/2019, 07/19/2016, 07/19/2016 Colon Cancer Screening-Colonoscopy 10/13/2033 10/13/2023 Hepatitis C Screening Completed 11/03/2018 Colon Cancer Screening-CT Colonography Discontinued 10/13/2023 Colon Cancer Screening-DNA Stool Discontinued 10/13/2023 Colon Cancer Screening-FIT Discontinued 10/13/2023 Colon Cancer Screening-Sigmoidoscopy Discontinued 10/13/2023 Pneumococcal vaccine <65 Aged Out No longer eligible based on patient's age to complete this topic Medical Devices Implanted Type Area College Director Device Identifier Shelf Expiration Date Model / Serial / Lot [employer] Bariatric Peristrip Non Crosslinked Bovine Pericardium For Endo Keira Thin [id number] - Sn/A - [id number] Implanted:Qty: 1 on 04/27/2024 by Jean Becker MD at [facility] Other - see comments N/A: Abdomen [employer] [id number] 01/25/2026 [id number] ATHN / N/A / [id number] Description:Lee Ann strip [employer] Bariatric Peristrip Non Crosslinked Bovine Pericardium For Endo Keira Thin [id number] - Sn/A - [id number] Implanted:Qty: 1 on 04/27/2024 by Jean Becker MD at [facility] Other - see comments N/A: Abdomen [employer] [id number] 01/25/2026 [id number] ATHN / N/A / [id number]- [id number] Description:Lee Ann Strip [employer] Bariatric Peristrip Non Crosslinked Bovine Pericardium For Endo Keira Thin [id number] - Sn/A - [id number] Implanted:Qty: 1 on 04/27/2024 by Jean Becker MD at [facility] Other - see comments N/A: Abdomen [employer] [id number] 01/25/2026 [id number] ATHN / N/A / [id number] Description:Lee Ann strip Procedures Procedure Name Priority Date/Time Associated Diagnosis Comments NM GASTRIC EMPTYING STUDY Schedule Routine, Read Routine (OP Routine) 07/13/2025 1:50 PM CDT Functional intestinal disorder NM HEPATOBILIARY IMAGING W MORPHINE Schedule Routine, Read Routine (OP Routine) 07/10/2025 2:47 PM CDT Right upper quadrant pain HEMOGLOBIN A1C Routine 06/08/2025 2:56 PM CDT INSULIN, TOTAL Routine 06/08/2025 2:56 PM CDT TESTOSTERONE, TOTAL AND FREE, SERUM Routine 06/08/2025 2:56 PM CDT ESTRADIOL Routine 06/08/2025 2:56 PM CDT LUTEINIZING HORMONE (LH) Routine 06/08/2025 2:56 PM CDT FOLLICLE STIMULATING HORMONE Routine 06/08/2025 2:56 PM CDT URINE CULTURE Routine 06/08/2025 2:55 PM CDT EGFR Routine 06/08/2025 2:54 PM CDT Bariatric surgery status Other specified intestinal malabsorption DIFFERENTIAL AUTO Routine 06/08/2025 2:5 4 PM CDT Bariatric surgery status Other specified intestinal malabsorption CBC WITH AUTO DIFFERENTIAL Routine 06/08/2025 2:54 PM CDT Bariatric surgery status Other specified intestinal malabsorption COMPREHENSIVE METABOLIC PANEL Routine 06/08/2025 2:54 PM CDT Bariatric surgery status Other specified intestinal malabsorption COPPER, SERUM Routine 06/08/2025 2:54 PM CDT Bariatric surgery status Other specified intestinal malabsorption FERRITIN Routine 06/08/2025 2:54 PM CDT Bariatric surgery status Other specified intestinal malabsorption FOLATE Routine 06/08/2025 2:54 PM CDT Bariatric surgery status Other specified intestinal malabsorption IRON PROFILE W/ IBC Routine 06/08/2025 2 :54 PM CDT Bariatric surgery status Other specified intestinal malabsorption LIPID PANEL Routine 06/08/2025 2:54 PM CDT Bariatric surgery status Other specified intestinal malabsorption PTH Routine 06/08/2025 2:54 PM CDT Bariatric surgery status Other specified intestinal malabsorption VITAMIN B1 Routine 06/08/2025 2:54 PM CDT Bariatric surgery status Other specified intestinal malabsorption VITAMIN B12 Routine 06/08/2025 2:54 PM CDT Bariatric surgery status Other specified intestinal malabsorption VITAMIN D 25 HYDROXY Routine 06/08/2025 2:54 PM CDT Bariatric surgery status Other specified intestinal malabsorption CT KNEE LEFT W CONTRAST Schedule Routine, Read Routine (OP Routine) 05/24/2025 3:11 PM CDT Left knee pain, unspecified chronicity [place] ARTHROCENTESIS ASPIR&/INJ MAJOR JT/BURSA W/O US Routine 05/18/2025 2:30 PM CDT Rotator cuff tear arthropathy, right Complete tear of left rotator cuff, unspecified whether traumatic US ABDOMEN LIMITED Schedule Routine, Read Routine (OP Routine) 05/11/2025 4:03 PM CDT Right upper quadrant pain FLUORO GUIDED ASPIRATION SHOULDER RIGHT Schedule Routine, Read Routine (OP Routine) 04/25/2025 4:00 PM CDT Chronic right shoulder pain CELL DIFFERENTIAL, BODY FLUID Routine 04/25/2025 3:42 PM CDT Chronic right shoulder pain CELL COUNT W/REFLEX DIFFERENTIAL, BODY FLUID Routine 04/25/2025 3:42 PM CDT Chronic right shoulder pain AEROBIC AND ANAEROBIC CULTURE AND GRAM STAIN Routine 04/25/2025 3:42 PM CDT Chronic right shoulder pain COLONOSCOPY 10/13/2023 9:38 AM TEST ENGINEERING TECHNICIAN HEPATITIS C RNA, QUANTITATIVE, PCR Routine 11/03/2018 10:29 AM TEST ENGINEERING TECHNICIAN from Last 3 Months or Most Recently Relevant to Health Maintenance Results * OR Gastric Emptying Study (07/13/2025 1:50 PM CDT) Anatomical Region Laterality Modality Body N/A Nuclear Medicine 07/13/2025 2:40 PM CDT Impressions 07/13/2025 2:40 PM CDT 1. Delayed gastric emptying. Electronically signed by: Saul Johnson M.D. Narrative 07/13/2025 2:40 PM CDT EXAM DESCRIPTION: OR GASTRIC EMPTYING STUDY RADIOPHARMACEUTICAL: 1 mCi Tc-99m sulfur colloid incorporated into [eggs] p.o. REASON FOR STUDY: Abdominal pain for 6 months. History of gastric sleeve and Jaqueline-en-Y gastric bypass one year ago. TECHNIQUE: After oral ingestion of the radiolabeled meal, sequential anterior and posterior abdominal images were obtained. COMPARISON: None FINDINGS: At 60 minutes, the residual activity is 97% (normal: 30-90%). ? At 120 minutes, the residual activity is 99% (normal: less than 60%). ? At 180 minutes, the residual activity is 98% (normal: less than 30%). ? At 240 minutes, the residual activity is 92% (normal: less than 10%). Procedure Note Saul Johnson MD - 07/13/2025 EXAM DESCRIPTION: OR GASTRIC EMPTYING STUDY RADIOPHARMACEUTICAL: 1 mCi Tc-99m sulfur colloid incorporated into [eggs] p.o. REASON FOR STUDY: Abdominal pain for 6 months. History of gastric sleeve and Jaqueline-en-Y gastric bypass one year ago. TECHNIQUE: After oral ingestion of the radiolabeled meal, sequential anterior and posterior abdominal images were obtained. COMPARISON: None FINDINGS: At 60 minutes, the residual activity is 97% (normal: 30-90%). ? At 120 minutes, the residual activity is 99% (normal: less than 60%). ? At 180 minutes, the residual activity is 98% (normal: less than 30%). ? At 240 minutes, the residual activity is 92% (normal: less than 10%). IMPRESSION: 1. Delayed gastric emptying. Electronically signed by: Saul Johnson M.D. us [facility] CRISTOBAL IMG NM PROCEDURES Final Re sult * NM Hepatobiliary Imaging W GBEF (07/10/2025 2:47 PM CDT) Anatomical Region Laterality Modality Body N/A Nuclear Medicine 07/10/2025 3:23 PM CDT Narrative 07/10/2025 3:24 PM CDT EXAM DESCRIPTION: NM HEPATOBILIARY IMAGING W GBEF RADIOPHARMACEUTICAL: 5 mCi Tc-99m mebrofenin via a right antecubital IV site and 8 oz Ensure Plus or equivalent P.O. REASON FOR STUDY: right upper quadrant pain TECHNIQUE: Following the intravenous administration of the radiopharmaceutical, sequential abdominal images were obtained. COMPARISON: None available. FINDINGS: There is prompt, homogenous tracer localization throughout the liver. There is normal visualization of the intrahepatic ducts, common bile duct, and gallbladder. There is normal biliary to bowel transit. Following the oral administration of Ensure Plus or equivalent, the gallbladder ejection fraction was calculated and was 79% (normal: greater than 40%, equivocal: 30-40%, and abnormal: less than 30%). IMPRESSION: No scintigraphic evidence of cystic duct obstruction. Normal contractile response of the gallbladder to fatty meal stimulation. THIS IS AN ELECTRONICALLY VERIFIED FINAL REPORT 07/10/2025 3:24 PM - Electronically signed by Bettie Cardenas M.D. FT T: Report ID: [id number] Reading Location: [id number] Procedure Note Bettie Bowen MD - 07/10/2025 EXAM DESCRIPTION: NM HEPATOBILIARY IMAGING W GBEF RADIOPHARMACEUTICAL: 5 mCi Tc-99m mebrofenin via a right antecubital IV site and 8 oz Ensure Plus or equivalent P.O. REASON FOR STUDY: right upper quadrant pain TECHNIQUE: Following the intravenous administration of the radiopharmaceutical, sequential abdominal images were obtained. COMPARISON: None available. FINDINGS: There is prompt, homogenous tracer localization throughout the liver.There is normal visualization of the intrahepatic ducts, common bile duct, and gallbladder. There is normal biliary to bowel transit. Following the oral administration of Ensure Plus or equivalent, the gallbladder ejection fraction was calculated and was 79% (normal:greater than 40%, equivocal: 30-40%, and abnormal: less than 30%). IMPRESSION: No scintigraphic evidence of cystic duct obstruction. Normal contractile response of the gallbladder to fatty mealstimulation. THIS IS AN ELECTRONICALLY VERIFIED FINAL REPORT 07/10/2025 3:24 PM - Electronically signed by Bettie Cardenas M.D. FT T: Report ID: [id number] Reading Location: [id number] [facility] CRISTOBAL IMG NM PROCEDURES Final Re sult * Insulin, total (06/08/2025 2:56 PM CDT) Insulin 11.5 2.6 - 25.0 mcIUnit/mL Blood 06/08/2025 2:56 PM CDT 06/08/2025 3:24 PM CDT Maria Luisa Turpin NP LAB BLOOD ORDERABLES Final Result [facility] [address] [facility] Department [place] [address] * Estradiol (06/08/2025 2:56 PM CDT) Estradiol <5.0 pg/mL Comment: Interpretive Data Males: 11 43 pg/mL Females: Premenopausal: 31 533 pg/mL Postmenopausal: < 50 pg/mL Patients treated with Fluvestrant (Faslodex) should be tested using an alternate assay such as LC-MS due to potential for cross-reactivity. Estradiol varies widely throughout the menstrual cycle. Current interpretive data was last revised 2024. Blood 06/08/2025 2:56 PM CDT 06/08/2025 3:24 PM CDT us Yadira Knox FREIGHT CAR INSPECTOR LAB BLOOD ORDERABLES Final R esult [facility] [address] [facility] Department [place] [address] * (ABNORMAL) Testosterone, Total and Free, Serum (06/08/2025 2:56 PM CDT) [facility] Testosterone 7.7(L) 8 - 60 ng/dL [facility] Lab Comment: ADDITIONAL INFORMATION Testing performed by Liquid Chromatography-Tandem Mass Spectrometry (LC-MS/MS). This test was developed and its performance characteristics determined by [facility] in a manner consistent with CLIA requirements. This test has not been cleared or approved by the U.S. Food and Drug Administration. Test Performed by: [facility] [address] [place] [address] Cost Specialist: Fredo Flaherty Ph.D.; CLIA# [id number] Testosterone, free <0.13 <0.13 - 0.90 ng/dL [facility] Comment: ADDITIONAL INFORMATION This test was developed and its performance characteristics determined by [facility] in a manner consistent with CLIA requirements. This test has not been cleared or approved by the U.S. Food and Drug Administration. Blood 06/08/2025 2:56 PM CDT 06/08/2025 3:23 PM CDT Narrative [facility] - 06/14/2025 2:20 PM CDT sent to lab; 06/09/2025 14:33:04 CDT [id number] partially completed; 06/12/2025 16:41:58 CDT [id number] testing partially completed; 06/14/2025 14:12:29 CDT [id number] Yadira Knox FREIGHT CAR INSPECTOR LAB BLOOD ORDERABLES Final R esult Performing Organization Address [facility] Co de Phone Number [place] [address] [place] [address] [facility] * Hemoglobin A1c (06/08/2025 2:56 PM CDT) [facility] Hgb A1C 5.0 4.0 - 5.6 % Estimated Average Glucose 97 mg/dL [facility] Comment: The ADA recommends reporting an estimated Average Glucose (eAG) with all Hemoglobin A1c results using the equation derived from a study of 507 normal and diabetic adults. Minority populations were underrepresented and children were not included. (Diabetes Care 31:8914-4371, 2008). The eAG is not equivalent to a fasting glucose. Blood 06/08/2025 2:56 PM CDT 06/08/2025 3:27 PM CDT us Maria Luisa Turpin FREIGHT CAR INSPECTOR LAB BLOOD ORDERABLES Final Result Performing Organization Address [facility] de Phone Number [address] [address] * LH (06/08/2025 2:56 PM CDT) Pathologist [facility] LH 36.6 mIUnits/mL Comment: Interpretive Data Males: Adults: 1.7 - 8.6 IUnits/L Females: Follicular: 2.4 - 12.6 IUnits/L Ovulation: 14.0 - 95.6 IUnits/L Luteal: 1.0 - 11.4 IUnits/L Postmenopausal: 7.7 - 58.5 IUnits/L Current interpretive data was last revised on 2019. Blood 06/08/2025 2:56 PM CDT 06/08/2025 3:24 PM CDT Yadira Knox NP LAB BLOOD ORDERABLES Final R esult Performing Organization Address City/[facility]/ZIP Co de Phone Number [address] [place] [address] * (ABNORMAL) Follicle stimulating hormone (06/08/2025 2:56 PM CDT) FSH 54.8(H) 1.5 - 12.4 IUnits/L Blood 06/08/2025 2:56 PM CDT 06/08/2025 3:24 PM CDT Yadira Knox NP LAB BLOOD ORDERABLES Final R esult Performing Organization Address [facility] Co de Phone Number [address] [place] [address] * Urine culture Urine (06/08/2025 2:55 PM CDT) Report Final Report: Less than 100,000 colonies/mL (clinically insignificant growth based on current clinical standards) Comment:Testing performed by : [facility], [address] [place]., [address] Organism (CLINICALLY INSIGNIFICANT GROWTH [facility] Urine 06/08/2025 2:55 PM CDT 06/08/2025 6:54 PM CDT Narrative CLAUDIO - 06/09/2025 8:24 PM CDT Testing performed by [facility] Microbiology Laboratory ([phone]) Maria Luisa Turpin FREIGHT CAR INSPECTOR LAB MICROBIOLOGY - GENERAL ORDERABLES Final Result Performing Organization Address City/[facility]/ZIP Co de Phone Number [address] [place] [address] * eGFR (06/08/2025 2:54 PM CDT) Pathologist [facility] eGFR >90 >=60 mL/min/1. 73 m2 Comment: Interpretive Data Reference Interval Normal >/= 90 mL/min/1.73m2 Mildly decreased* 60 - 89 mL/min/1.73m2 Mildly to moderately decreased 45 - 59 mL/min/1.73m2 Moderately to severely decreased 30 - 44 mL/min/1.73m2 Severely decreased 15 - 29 mL/min/1.73m2 Kidney Failure < 15 mL/min/1.73m2 *Relative to young adult level Estimated glomerular filtration rate is determined by the 2020 CKD-EPI equation recommended by the National Kidney Foundation (A Unifying Approach to GFR Estimation: Recommendations of the NKF-ASK Task Force on Reassessing the Inclusion of Race in Diagnosing Kidney Disease, JASN 2020). The CKD-EPI equation should not be used for patients with unstable renal function and has not been validated in children and those over 70. Current interpretive data was last reviewed 2021. Blood 06/08/2025 2:54 PM CDT 06/08/2025 3:24 PM CDT Bryant Li FREIGHT CAR INSPECTOR LAB BLOOD ORDERABLES Final Result CLAUDIO [address] [facility] Department [place] [address] * Differential, auto (06/08/2025 2:54 PM CDT) [facility] Neutrophil abs 3.12 1.50 - 6.50 K/cumm Imm gran abs 0.01 0.00 - 0.10 K/cumm [facility] Lymphocyte abs 2.37 0.80 - 3.30 K/cumm [facility] Monocyte abs 0.51 0.20 - 0.80 K/cumm [facility] Eosinophil abs 0.13 0.00 - 0.50 K/cumm [facility] Basophil abs 0.04 0.00 - 0.10 K/cumm [facility] Neutrophil pct 50.5 % [facility] Comment: Interpretive Data Percent cell count reference ranges are not reported, since discordance with absolute values may lead to misinterpretation of CBC data. Current Interpretive Data was last revised on 2017. Imm gran pct 0.2 % [facility] Comment: Interpretive Data Percent cell count reference ranges are not reported, since discordance with absolute values may lead to misinterpretation of CBC data. Current Interpretive Data was last revised on 2017. Lymphocyte pct 38.3 % [facility] Comment: Interpretive Data Percent cell count reference ranges are not reported, since discordance with absolute values may lead to misinterpretation of CBC data. Current Interpretive Data was last revised on 2017. Monocyte pct 8.3 % [facility] Comment: Interpretive Data Percent cell count reference ranges are not reported, since discordance with absolute values may lead to misinterpretation of CBC data. Current Interpretive Data was last revised on 2017. Eosinophil pct 2.1 % [facility] Comment: Interpretive Data Percent cell count reference ranges are not reported, since discordance with absolute values may lead to misinterpretation of CBC data. Current Interpretive Data was last revised on 2017. Basophil pct 0.6 % [facility] Comment: Interpretive Data Percent cell count reference ranges are not reported, since discordance with absolute values may lead to misinterpretation of CBC data. Current Interpretive Data was last revised on 2017. Blood 06/08/2025 2:54 PM CDT 06/08/2025 3:27 PM CDT us Bryant Li NP LAB BLOOD ORDERABLES Final Result [facility] [address] [facility] Department [place] [address] * (ABNORMAL) Iron profile w/ IBC (06/08/2025 2:54 PM CDT) Iron 51 35 - 145 mcg/dL TIBC 263 250 - 400 mcg/dL CLAUDIO Transferrin saturation 19(L) 20 - 50 % CLAUDIO Blood 06/08/2025 2:54 PM CDT 06/08/2025 3:24 PM CDT us Bryant Li FREIGHT CAR INSPECTOR LAB BLOOD ORDERABLES Final Result Performing Organization Address [facility] de Phone Number CLAUDIO [address] [address] * (ABNORMAL) CBC with auto differential (06/08/2025 2:54 PM CDT) Pathologist [facility] WBC 6.18 3.80 - 9.90 K/cumm Hgb 11.7(L) 11.9 - 15.5 g/dL [facility] Hct 36.8 35.6 - 45.5 % [facility] Plt 229 150 - 400 K/cumm [facility] MPV 9.9 9.1 - 12.3 fL [facility] RBC 3.57(L) 3.90 - 5.20 M/cumm [facility] MCV 103.1(H) 81.3 - 96.4 fL [facility] MCH 32.8 27.1 - 33.3 pg [facility] MCHC 31.8(L) 32.3 - 35.7 g/dL [facility] RDW CV 13.9 11.1 - 14.9 % [facility] RDW SD 53.3(H) 35.7 - 48.1 fL [facility] NRBC abs 0.00 0.00 - 0.01 K/cumm [facility] Blood 06/08/2025 2:54 PM CDT 06/08/2025 3:27 PM CDT Bryant Li NP LAB BLOOD ORDERABLES Final Result Performing Organization Address [facility] de Phone Number [address] [address] * (ABNORMAL) Copper, serum (06/08/2025 2:54 PM CDT) Pathologist [facility] Copper 72(L) 77 - 206 mcg/dL [facility] Comment: ADDITIONAL INFORMATION This test was developed and its performance characteristics determined by [facility] in a manner consistent with CLIA requirements. This test has not been cleared or approved by the U.S. Food and Drug Administration. Test Performed by: [facility] - [address] [address] Cost Specialist: Fredo Flaherty Ph.D.; CLIA# [id number] Blood 06/08/2025 2:54 PM CDT 06/08/2025 3:24 PM CDT Narrative [facility] - 06/10/2025 3:19 PM CDT sent to lab; 06/09/2025 14:33:04 CDT [id number] Bryant Li NP LAB BLOOD ORDERABLES Final Result Performing Organization Address City/[facility]/ZIP Co de Phone Number [address] [place] [address] [facility] Lab * Vitamin D 25 hydroxy (06/08/2025 2:54 PM CDT) [facility] Vitamin D 25-OH 37.0 30.0 - 80.0 ng/mL Blood 06/08/2025 2:54 PM CDT 06/08/2025 3:24 PM CDT Bryant Li NP LAB BLOOD ORDERABLES Final Result Performing Organization Address City/[facility]/ZIP Co de Phone Number [address] [address] * Vitamin B1 (06/08/2025 2:54 PM CDT) Pathologist [facility] Thiamine (Vit B1) 119 70 - 180 nmol/L [facility] Comment: ADDITIONAL INFORMATION This test was developed and its performance characteristics determined by [facility] in a manner consistent with CLIA requirements. This test has not been cleared or approved by the U.S. Food and Drug Administration. Test Performed by: [facility] - [address] [address] Cost Specialist: Fredo Flaherty Ph.D.; IA# [id number] Blood 06/08/2025 2:54 PM CDT 06/08/2025 3:25 PM CDT Narrative CLAUDIO Velia 06/13/2025 9:09 AM CDT sent to lab; 06/09/2025 14:33:04 CDT [id number] received in lab; 06/12/2025 16:09:42 CDT [id number] Bryant Li NP LAB BLOOD ORDERABLES Final Result [address] [employer] [address] [facility] * (ABNORMAL) PTH (06/08/2025 2:54 PM CDT) Pathologist [facility] PTH 68(H) 15 - 65 pg/mL Blood 06/08/2025 2:54 PM CDT 06/08/2025 3:24 PM CDT Bryant Li FREIGHT CAR INSPECTOR LAB BLOOD ORDERABLES Final Result Performing Organization Address City/[facility] Co de Phone Number [address] [place] [address] * Folate (06/08/2025 2:54 PM CDT) Pathologist [facility] Folic acid >20.0 >=5.0 ng/mL Blood 06/08/2025 2:54 PM CDT 06/08/2025 3:24 PM CDT Bryant Li FREIGHT CAR INSPECTOR LAB BLOOD ORDERABLES Final Result Performing Organization Address City/[facility]/ZIP Co de Phone Number [address] [place] [address] * Ferritin (06/08/2025 2:54 PM CDT) Ferritin 136 13 - 150 ng/mL Blood 06/08/2025 2:54 PM CDT 06/08/2025 3:24 PM CDT Bryant Li FREIGHT CAR INSPECTOR LAB BLOOD ORDERABLES Final Result Performing Organization Address [facility] Co de Phone Number [address] [place] [address] * (ABNORMAL) Vitamin B12 (06/08/2025 2:54 PM CDT) Pathologist [facility] Vitamin B12 >2,000(H) 230 - 1,250 pg/mL Blood 06/08/2025 2:54 PM CDT 06/08/2025 3:24 PM CDT Bryant Li LAB BLOOD ORDERABLES Final Result Performing Organization Address [facility] de Phone Number [address] [place] [address] * Lipid panel (06/08/2025 2:54 PM CDT) Pathologist [facility] Cholesterol 174 30 - 199 mg/dL Comment: Interpretive Data Ages < or = 19 years Acceptable: <170 mg/dL Borderline high: 170-199 mg/dL High: >or= 200 mg/dL Ages > or = 20 years Desirable: <200 mg/dL Borderline high: 200-239 mg/dL High: >or= 240 mg/dL Literature References: 1. Expert Panel on Integrated Guidelines for Cardiovascular Health and Risk Reduction in Children and Adolescents. Pediatrics 2011;128:S213 2. NCEP Expert Panel. Circulation 2004;110:227 Current Interpretive Data was last revised on 2018. Triglycerides 68 <=149 mg/dL [facility] Comment: Interpretive Data Ages < or = 9 years Acceptable: <75 mg/dL Borderline high: 75-99 mg/dL High: >or= 100 mg/dL Ages 10 to 20 years Acceptable: <90 mg/dL Borderline high: 90-129 mg/dL High: >or= 130 mg/dL Ages > or = 20 years Desirable: <150 mg/dL Borderline high: 150-199 mg/dL High: 200-499 mg/dL Very high: >or= 499 mg/dL Literature References: 1. Expert Panel on Integrated Guidelines for Cardiovascular Health and Risk Reduction in Children and Adolescents. Pediatrics 2011;128:S213 2. NCEP Expert Panel. Circulation 2004;110:227 Current Interpretive Data was last revised on 2018. HDL 88 >=40 mg/dL CLAUDIO Comment: Interpretive Data Ages < or = 19 years Acceptable: >45 mg/dL Borderline low: 40-45 mg/dL Low: <40 mg/dL Ages > or = 20 years Desirable: >or= 60 mg/dL Low: <40 mg/dL Literature References: 1. Expert Panel on Integrated Guidelines for Cardiovascular Health and Risk Reduction in Children and Adolescents. Pediatrics 2011;128:S213 2. NCEP Expert Panel. Circulation 2004;110:227 Current Interpretive Data was last revised on 2018. LDL, calculated 73 <=129 mg/dL [facility] Comment: Interpretive Data Ages < or = 19 years Acceptable: <110 mg/dL Borderline high: 110-129 mg/dL High: >or= 130 mg/dL Ages > or = 20 years Optimal: <100 mg/dL Near optimal: 100-129 mg/dL Borderline high: 130-159 mg/dL High: >160 mg/dL Calculated using the Stephane LDL-C estimating equation. This equation was implemented on 2024. Prior to this date LDL-C was estimated using the Friedewald equation. Literature References: 1. Expert Panel on Integrated Guidelines for Cardiovascular Health and Risk Reduction in Children and Adolescents. Pediatrics 2011;128:S213 2. NCEP Expert Panel. Circulation 2004;110:227 3. Stephane Rodrigues al. GUILHERME Cardiol. 2020 January 19;5(5):540-548. doi: 10.1001/jamacardio.2020.0013 Current Interpretive Data was last revised on 2024. Non-HDL Cholesterol 86 mg/dL [facility] Comment: Interpretive Data Ages < or = 19 years Acceptable: <120 mg/dL Borderline high: 120-144 mg/dL High: >145 mg/dL Ages > or = 20 years When triglycerides are >200 mg/dL, Non-HDL cholesterol is a secondary target of therapy with treatment goals that are 30 mg/dL greater than the LDL cholesterol target. Literature References: 1. Expert Panel on Integrated Guidelines for Cardiovascular Health and Risk Reduction in Children and Adolescents. Pediatrics 2011;128:S213 2. NCEP Expert Panel. Circulation 2004;110:227 Current Interpretive Data was last revised on 2018. Chol/HDL ratio 2 [facility] Blood 06/08/2025 2:54 PM CDT 06/08/2025 3:24 PM CDT Bryant Li NP LAB BLOOD ORDERABLES Final Result [facility] [address] [facility] Department [place] [address] * (ABNORMAL) Comprehensive metabolic panel (06/08/2025 2:54 PM CDT) Sodium 140 135 - 145 mmol/L Potassium, pl 4.0 3.3 - 4.9 mmol/L [facility] Chloride 107 97 - 110 mmol/L [facility] CO2 23 22 - 32 mmol/L [facility] Anion gap 10 2 - 15 mmol/L [facility] BUN 14 6 - 25 mg/dL [facility] Creatinine 0.75 0.60 - 1.10 mg/dL [facility] Glucose 105 70 - 199 mg/dL [facility] Comment: Interpretive Data Fasting glucose >/= 126 mg/dl is diagnostic for diabetes. Fasting is defined as no caloric intake for at least 8 hours. Fasting glucose between 100 mg/dl to 125 mg/dl is diagnostic of prediabetes. In a patient with classic symptoms of hyperglycemia or hyperglycemic crisis, a random glucose >/= 200 mg/dl is diagnostic for diabetes. In the absence of unequivocal hyperglycemia, results should be confirmed by repeat testing. The classification and Diagnosis of Diabetes Diabetes Care 2021; 46: S19-S40. Current interpretive data was last revised 2022. Calcium 9.3 8.5 - 10.3 mg/dL [facility] Bilirubin, total 0.2 0.1 - 1.2 mg/dL [facility] Protein, pl 6.4(L) 6.5 - 8.5 g/dL [facility] Albumin 4.0 3.5 - 5.0 g/dL [facility] Alk phos 87 40 - 130 Units/L [facility] ALT 21 7 - 45 Units/L [facility] AST 24 10 - 45 Units/L [facility] Blood 06/08/2025 2:54 PM CDT 06/08/2025 3:24 PM CDT Bryant Li NP LAB BLOOD ORDERABLES Final Result [facility] [address] [facility] Department [place] [address] * CT Knee Left W Contrast (05/24/2025 3:11 PM CDT) Anatomical Region Laterality Modality Lower Extremities Left Computed Tomog jazz 05/24/2025 4:14 PM CDT Narrative 05/24/2025 4:22 PM CDT EXAM DESCRIPTION: CT KNEE LEFT W CONTRAST REASON FOR STUDY: M25.562 S/p left knee injury 2-3 months ago, continuing patellar pain and swelling since TECHNIQUE: Multidetector CT scan of the left knee was performed after intravenous contrast. Coronal and sagittal images were reconstructed. Dose modulation adjustment of the mA and/or kV has been performed per [facility] protocols according to patient size and indication CONTRAST TYPE/DOSE: 90mL of IOVERSOL 350 MG IODINE/ML INTRAVENOUS SYRINGE injected via intravenous COMPARISON: Radiograph dated March 31, 2025 FINDINGS: Bones: No fracture. No dislocation. Mild tricompartment osteoarthritis. Soft Tissues: No soft tissue swelling or foreign body. Small joint effusion.. Other: No other finding. IMPRESSION: 1. No acute osseous abnormality. 2. Mild tricompartment osteoarthritis. 3. Small joint effusion. THIS IS AN ELECTRONICALLY VERIFIED FINAL REPORT 05/24/2025 4:22 PM - Electronically signed by Agustin SOUSA T: Report ID: [id number] Reading Location: [id number] Procedure Note Agustin Morales MD - 05/24/2025 EXAM DESCRIPTION: CT KNEE LEFT W CONTRAST REASON FOR STUDY: M25.562 S/p left knee injury 2-3 months ago, continuing patellar pain andswelling since TECHNIQUE: Multidetector CT scan of the left knee was performed after intravenous contrast. Coronal and sagittal images were reconstructed. Dose modulation adjustment of the mA and/or kV has been performed per [facility]K protocols according to patient size and indication CONTRAST TYPE/DOSE: 90mL of IOVERSOL 350 MG IODINE/ML INTRAVENOUSSYRINGE injected via intravenous COMPARISON: Radiograph dated March 31, 2025 FINDINGS: Bones: No fracture. No dislocation. Mild tricompartment osteoarthritis. Soft Tissues: No soft tissue swelling or foreign body. Small joint effusion.. Other: No other finding. IMPRESSION: 1. No acute osseous abnormality. 2. Mild tricompartment osteoarthritis. 3. Small joint effusion. THIS IS AN ELECTRONICALLY VERIFIED FINAL REPORT 05/24/2025 4:22 PM - Electronically signed by Agustin SOUSA T: Report ID: [id number] Reading Location: [place] [address] us Maria Luisa Turpin NP IMG CT PROCEDURES Final Res ult * [place] ARTHROCENTESIS ASPIR&/INJ MAJOR JT/BURSA W/O US (05/18/2025 2:30 PM CDT) Narrative Kevin Parker MD - 05/18/2025 2:30 PM CDT Kevin Parker MD 05/18/2025 3:11 PM Large Joint (Hip, Knee, Shoulder) Injection: bilateral subacromial bursa Performed by: Kevin Parker MD Authorized by: Kevin Parker MD Large Joint Injection/Aspiration: Consent Given by: Patient Written consent obtained: Yes Supporting Documentation: Indications: Pain Procedure Details: Location: Shoulder Site: Bilateral subacromial bursa Prep: patient was prepped using a clean technique (The skin was anesthetized with ethyl chloride spray prior to the injections.) Needle Size: 25 G Medications Right Large Joint Injection: 2 mL lidocaine 10 mg/mL (1 %); 40 mg triamcinolone 40 mg/mL Medications Left Large Joint Injection: 2 mL lidocaine 10 mg/mL (1 %); 40 mg triamcinolone 40 mg/mL Patient tolerance: Patient tolerated the procedure well with no immediate complications us Kevin Parker MD IN CLINIC/BEDSIDE ORDERABL ES Final Result * US Abdomen Limited (05/11/2025 4:03 PM CDT) Anatomical Region Laterality Modality Abdomen N/A Ultrasound 05/23/2025 1:32 AM CDT Narrative 05/23/2025 1:33 AM CDT EXAM DESCRIPTION: US ABDOMEN LIMITED REASON FOR STUDY: Right upper quadrant abdominal pain for 6 months. TECHNIQUE: Ultrasound of the right upper quadrant of the abdomen was performed with grayscale and color doppler. COMPARISON: None FINDINGS: PANCREAS: Visualized portions of the pancreas are within normal limits. Portions of the pancreatic body and tail are obscured due to bowel gas. LIVER: The liver appears normal in echotexture and echogenicity. No focal lesion identified. The main portal vein is patent with antegrade flow. GALLBLADDER: The gallbladder appears unremarkable. No cholelithiasis. No gallbladder wall thickening or pericholecystic fluid. No positive sonographic [place] sign reported. BILIARY: There is no intrahepatic or extrahepatic biliary ductal dilatation. Common bile duct measures 5 mm in diameter. RIGHT KIDNEY: Normal size. Normal echogenicity. No solid mass or cyst. No hydronephrosis. Measures 9.9 cm in length. OTHER: No other significant findings. IMPRESSION: No acute abnormality. THIS IS AN ELECTRONICALLY VERIFIED FINAL REPORT 05/23/2025 1:33 AM - Electronically signed by Al Schrader M.D. KT T: Report ID: [id number] Reading Location: [id number] Procedure Note Al Schrader MD - 05/23/2025 EXAM DESCRIPTION: US ABDOMEN LIMITED REASON FOR STUDY: Right upper quadrant abdominal pain for 6 months. TECHNIQUE: Ultrasound of the right upper quadrant of the abdomen wasperformed with grayscale and color doppler. COMPARISON: None FINDINGS: PANCREAS: Visualized portions of the pancreas are withinnormal limits. Portions of the pancreatic body and tail are obscured due to bowel gas. LIVER: The liver appears normal in echotexture and echogenicity. Nofocal lesion identified. The main portal vein is patent with antegrade flow. GALLBLADDER: The gallbladder appears unremarkable. No cholelithiasis.No gallbladder wall thickening or pericholecystic fluid. No positivesonographic [place] sign reported. BILIARY: There is no intrahepatic or extrahepatic biliary ductaldilatation. Common bile duct measures 5 mm in diameter. RIGHT KIDNEY: Normal size. Normal echogenicity. No solid mass or cyst.No hydronephrosis. Measures 9.9 cm in length. OTHER: No other significant findings. IMPRESSION: No acute abnormality. THIS IS AN ELECTRONICALLY VERIFIED FINAL REPORT 05/23/2025 1:33 AM - Electronically signed by Al Schrader M.D. KT T: Report ID: [id number] Reading Location: [place] [address] us Maria Luisa Turpin FREIGHT CAR INSPECTOR IMG US PROCEDURES Final Res ult * FL Fluoro Guided Aspiration Shoulder Right (04/25/2025 4:00 PM CDT) Anatomical Region Laterality Modality Shoulder Right Computed Radiogr aphy, Computed Radiography 04/25/2025 3:47 PM CDT Narrative 04/25/2025 3:48 PM CDT EXAM DESCRIPTION: FL FLUORO GUIDED ASPIRATION SHOULDER RIGHT REASON FOR STUDY: right shoulder pain Right shoulder joint effusion COMPARISON: None. TECHNIQUE: Supine positioning on the fluoroscopic imaging table. FINDINGS: 23 gauge needle inserted into the right glenohumeral joint. Immediate and spontaneous return of clear/yellow joint fluid. 10 cc obtained and sent to the lab for evaluation. IMPRESSION: Successful fluoroscopic guided right glenohumeral joint aspiration. THIS IS AN ELECTRONICALLY VERIFIED FINAL REPORT 04/25/2025 3:48 PM - Electronically signed by Melchor AMEZQUITA T: Report ID: [id number] Reading Location: [place] [address] Procedure Note Melchor Carreno MD - 04/25/2025 EXAM DESCRIPTION: FL FLUORO GUIDED ASPIRATION SHOULDER RIGHT REASON FOR STUDY: right shoulder pain Right shoulder joint effusion COMPARISON: None. TECHNIQUE: Supine positioning on the fluoroscopic imaging table. FINDINGS: 23 gauge needle inserted into the right glenohumeral joint. Immediate and spontaneous return of clear/yellow joint fluid. 10 cc obtained and sentto the lab for evaluation. IMPRESSION: Successful fluoroscopic guided right glenohumeral joint aspiration. THIS IS AN ELECTRONICALLY VERIFIED FINAL REPORT 04/25/2025 3:48 PM - Electronically signed by Melchor AMEZQUITA T: Report ID: [id number] Reading Location: [place] [address] Kevin Parker MD IMG FLUOROSCOPY PROCEDURES Final Result * Cell Differential, Body Fluid (04/25/2025 3:42 PM CDT) Total cells diffed 100 % Comment: Interpretive Data Unless otherwise specified, the reference range and other method performance specifications have not been established for CSF/Body Fluid tests. The test results should be integrated into the clinical context for interpretation. Current interpretive data was last revised on 2019. Neutrophils, fld 6 % CLAUDIO Lymphs, fld 76 % CLAUDIO Monocyte, fld 4 % CLAUDIO Macrophages, fld 14 % CLAUDIO Fluid 04/25/2025 3:42 PM CDT 04/25/2025 4:07 PM CDT Kevin Parker MD LAB BODY FLUIDS AND STOOLS ORDERABLES Final Result CLAUDIO GERMAIN [address] [facility] Department [place] [address] * Cell count w/rflx diff, body fluid (04/25/2025 3:42 PM CDT) Specimen type, fld Synovial Body site, fld synovial CERMYNOR Color, fld Yellow CLAUDIO Clarity, fld Clear CLAUDIO Nucleated cells, fld 116 /cumm CLAUDIO JESSA Comment: Interpretive Data Unless otherwise specified, the reference range and other method performance specifications have not been established for CSF/Body Fluid tests. The test results should be integrated into the clinical context for interpretation. Current interpretive data was last revised on 2019. RBC, fld <2,000 /cumm CLAUDIO GERMAIN Fluid 04/25/2025 3:42 PM CDT 04/25/2025 4:07 PM CDT Narrative CLAUDIO GERMAIN - 04/25/2025 5:04 PM CDT Specify:->right shoulder us Kevin Parker MD LAB BODY FLUIDS AND STOOLS ORDERABLES Final Result CLAUDIO [address] [facility] Department [place] [address] * Aerobic and anaerobic culture and gram stain Synovial fluid Shoulder, right (04/25/2025 3:42 PM CDT) Direct Specimen Exam Stain: Cytospin Gram stain shows: No polymorphonuclear leukocytes seen. No organisms seen. Comment:Testing performed by : [facility], [address] [place]., [address] Report Final Report: No growth CLAUDIO GERMAIN Comment:Testing performed by : [facility], [address] [place]., [address] Synovial fluid (Shoulder, right) 04/25/2025 3:42 PM CDT 04/25/2025 6:06 PM CDT Narrative CLAUDIO GERMAIN - 05/05/2025 10:52 AM CDT Hold of 14 days c acnes Testing performed by [facility] ([phone]) Specimens submitted from normally sterile body sites will have all bacterial morphotypes identified. Specimens that contain grossly mixed eloise and/or are from body sites that are not normally sterile will be examined for Staphylococcus aureus, Pseudomonas aeruginosa, beta-hemolytic strep, vancomycin-resistant Enterococcus, Bacteroides, Parabacteroides, Clostridium perfringens and fungus. If any of these are isolated, the organism will be reported. Current interpretive data was last revised on 2019. us Kevin Parker MD LAB MICROBIOLOGY - GENERAL ORDERABLES Final Result IFYGRW GE [address] [facility] Department [place] [address] * COLONOSCOPY (10/13/2023 9:38 AM TEST ENGINEERING TECHNICIAN) Anatomical Region Laterality Modality Other Narrative Procedure Note Joaquín Starr MD - 10/13/2023 9:38 AM CST [facility] ENDOSCOPY [facility] Patient Name: Corine Cooper Procedure Date: 10/13/2023 9:38 AM Date of : 1970 Admit Type: Outpatient Age: 53 Gender: Female Attending MD: Joaquín Ho M.D. Room: [facility] ENDOSCOPY ROOM 9 Note Status: Finalized Procedure: Colonoscopy Indications: Screening for colorectal malignant neoplasm Referring MD: Alex Watters M.D. Providers: Joaquín Ho M.D. Medicines: Monitored Anesthesia Care Complications: No immediate complications. Estimated Blood Loss: Estimated blood loss: none. Procedure: Pre-Anesthesia Assessment: - The risks and benefits of the procedure and the sedation options and risks were discussed with the patient. All questions were answered and informed consent was obtained. - Immediately prior to administration ofmedications, the patient was re-assessed for adequacy to receive sedatives. The benefits, risks and alternatives of theprocedure and sedation were discussed and informed consentwas obtained. All questions were answered. Please referto the signed informed consent document in the medical record. The scope was passed under direct vision.The CF [id number] endoscope was introduced through the anus and advanced to the cecum, identified by appendiceal orifice and ileocecal valve. The colonoscopy was performed without difficulty. The patient tolerated the procedure well. The qualityof the bowel preparation was good. The quality of the bowel preparation was evaluated using the BBPS([place] Bowel Preparation Scale) with scores of: RightColon = 3, Transverse Colon = 3 and Left Colon = 3 (entire mucosa seen well with no residual staining, small fragments of stool or opaque liquid). The totalBBPS score equals 9. The bowel preparation used was polyethylene glycol (PEG) via split doseinstruction. Bowel prep was administered using a split dose. Findings: The perianal and digital rectal examinations were normal. The entire examined colon appeared normal on direct and retroflexion views. Impression: - The entire examined colon is normal on direct and retroflexion views. Recommendation: - No contra-indications on this examination tocolonic interposition if clinically indicated. - See same-day EGD report for additional findingsand recommendations. - Return to referring provider as indicated. - In the unusual situation that you developabdominal pain, bleeding or other significant problems in the days following this procedure please call my office [phone]). After hours and eveningsplease call [phone] and speak to the GI fellow charles. Please tell the fellow that Dr. Ho did your procedure and that you were instructed to have the fellow call me or the physician covering for me to discuss the management of your condition. If youhave an urgent problem, please go to the nearestemergency room and have the ER doctor call my office duringthe day or the GI fellow after hours and weekends to arrange admission or transfer to our facility.Please bring this report with you [facility]. Attending Participation: I personally performed the entire procedure. Electronically signed by Joaquín Ho MD Joaquín Ho M.D. 10/13/2023 9:52:30 AM . Number of Addenda: 0 Note Initiated On: 10/13/2023 9:38 AM Recognized by the [place] [employer] for promoting quality in endoscopy Joaquín Ho MD ENDOSCOPY PROCEDURES Final Result * Hepatitis C (HCV) RNA PCR, quantitative (11/03/2018 10:29 AM TEST ENGINEERING TECHNICIAN) HCV RNA IU/mL Not Detected IU/mL 11/05/2018 9:27 PM TEST ENGINEERING TECHNICIAN [facility] [employer] HISTORICAL RESULTS HCV RNA log IU/mL Not Detected log IU/mL 11/05/2018 9:27 PM TEST ENGINEERING TECHNICIAN [facility] HISTORICAL RESULTS HCV quant by NAAT interp Not Detected Not Detected Comment: INTERPRETIVE INFORMATION: HCV by Quantitative NAAT Normal range for this assay is Not Detected. The quantitative range of this assay is 10 - 100,000,000 IU/mL (1.0 - 8.0 log IU/mL). Lower limit of quantitation (LLoQ): 10 IU/mL (1.0 log IU/mL) LLoQ values do not apply to diluted specimens. A result of Not Detected does not rule out the presence of inhibitors in the patient specimen or hepatitis C virus RNA concentrations below the level of detection of the test. Care should be taken when interpreting any single viral load determination. This test should not be used for blood donor screening, associated re-entry protocols, or for screening Human Cell, Tissues and Cellular Tissue-Based Products (HCT/P). Performed by [facility], [address] [place] [id number] [email or web address], Simón Houston MD, Lab. Director 11/03/2018 10:2 9 AM TEST ENGINEERING TECHNICIAN 11/03/2018 10:35 AM TEST ENGINEERING TECHNICIAN Hemal Carreon MD LAB MICROBIOLOGY - GENERAL ORDERABLES Final Result [facility] HISTORICAL RESULTS from Last 3 Months or Most Recently Relevant to Health Maintenance Insurance Advance Directives For more information, please contact: [phone] * Full Code (Latest Code Status on File) Date Activated Date Inactivated Comments 11/11/2024 7:51 AM 11/11/2024 12:23 PM * Full Code Date Activated Date Inactivated Comments 08/02/2024 7:26 AM 08/02/2024 12:56 PM * Full Code Date Activated Date Inactivated Comments 04/27/2024 8:33 PM 04/28/2024 6:47 PM * Full Code Date Activated Date Inactivated Comments 04/18/2024 7:36 AM 04/18/2024 12:56 PM * Full Code Date Activated Date Inactivated Comments 11/05/2023 7:28 AM 11/05/2023 1:53 PM Care Teams Business Attorney Relationship Specialty Start Date End Date Maria Luisa Turpin NP [address] [place] [address] PCP - General Family Medicine 02/14/25 Maria Luisa Turpin NP [address] [place] [address] Family Medicine 02/14/25 Debbie Rhodes MD [address], [place] [address] Referring Physician General Surgery 09/15/23 Erlinda Gonzalez NP [address] [place] [address] Nurse Practitioner Nurse Practitioner 09/15/23 Bryant Joaquin MD [address] [facility] [id number] [place] [address] Surgeon Colon and Rectal Surgery 11/06/23 Alex Caldwell MD [address] [facility] [id number] [place] [address] Surgeon Thoracic Surgery 11/06/23 Joaquín Starr MD [address] [facility] [id number] [place] [address] Integration Developer Gastroenterology 11/06/23
--- OUTSIDE RECORDS SUMMARY | 2025-07-17 14:58 | XMS_ITS | Clinical Summary ---
Author Organization [facility] Address [address] [place] [address] Phone Care Team Providers Care Detail Assembler Name Role Phone Shankar Jimenez MD Primary Care Provider [phone] Maribell Gomez MD Unavailable Lev Alvarez MD Unavailable [phone] Allergies Active Allergy Reactions Criticality Noted Date Comments Acetaminophen-Pamabrom Rash High 07/29/2022 Cinnamedrine Rash Medium 07/30/2018 Rash Ibuprofen Hives Medium 07/04/2014 Pt has had gastric sleeve Pamabrom Other (see Comments) Low 09/28/2023 Medications Multiple Vitamin (MULTIVITAMIN ADULT PO) Take 1 Tablet by mouth daily. Active Calcium Carbonate (CALCIUM 600 PO) Take by mouth. Activ e losartan (COZAAR) 50 MG Tablet Take 50 mg by mouth daily. Active levothyroxine (SYNTHROID) 75 MCG Tablet TAKE 1 TABLET BY MOUTH EVERY DAY 90 Tablet 5 Active amLODIPine (NORVASC) 2.5 MG Tablet Take 2.5 mg by mouth daily. 5 Active losartan (COZAAR) 100 MG Tablet Take 100 mg by mouth daily. 5 Active mometasone (NASONEX) 50 MCG/ACT Suspension 1 [place] by Nasal route. 4 Active Lecithin 1200 MG Capsule Take by mouth every morning. Active fluticasone (FLONASE) 50 MCG/ACT Suspension INSTILL 2 SPRAYS BY INTRANASAL ROUTE EVERY DAY 5 Active azelastine (ASTELIN) 0.1 % Solution 1-2 Sprays by Nasal route. 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 Encounters Date Type Department Care Team Description 04/20/2025 Refill [facility]ology - [place] [address] [place] [address] Maribell Gomez MD Medication Refill from Last 3 Months Immunizations Immunization Administration Dates Next Due Hepatitis A Vaccine 04/21/2016,10/22/2015 Hepatitis A Vaccine,unspecif ied Formulation 04/21/2016,10/22/2015 Influenza Vaccine, Quadrivalent, PF 08/21,08/29/2020,07/22/2016,2015 Influenza Vaccine,unspecifie d Formulation 06/20/2019,07/22/2016,10/22/2015 Influenza, Injectable, Mdck,quadrivalent,with Preservative 08/25/2018 Influenza, Injectable, Quadrivalent 06/07/2019,1 09/21/2017 MMR Vaccine 03/13/2023,01/23/2023 TDAP Vaccine 05/04/2019,07/19/2016 Family History Medical History Relation Name Comments No Known Problems Brother Prostate Cancer Father Cancer Mother Relation Name Status Comments Brother Alive Father Alive Mother Alive Social History Tobacco Use Types Packs/Day Years Used Date Smoking Tobacco: Former Smokeless Tobacco: Never Tobacco Cessation:Counseling Given: Not Answered Alcohol Use Standard Drinks/Week Comments Not Currently 0 (1 standard drink = 0.6 oz pur e alcohol) Socially Sexually Active Control Partners Comments Yes Male Comments No Sex and Gender Information Value Date Recorded Sex Assigned at Female 09/18/2023 6:28 PM TOP AND TRIM WORKER Legal Sex Female 1:12 PM CDT Gender Identity Female 09/18/2023 6:28 PM TOP AND TRIM WORKER Sexual Orientation Straight 09/18/2023 6: 28 PM TOP AND TRIM WORKER Last Filed Vital Signs Vital Sign Reading Time Taken Comments Blood Pressure 138/80 01/19/2025 2:15 PM CDT Pulse 63 01/19/2025 2:15 PM CDT Temperature 36.7 C (98 F) 01/19/2025 2:15 PM CDT Respiratory Rate 16 01/19/2025 2:15 PM CDT Oxygen Saturation 98% 01/19/2025 2:15 PM CDT Inhaled Oxygen Concentration - - Weight 66.1 kg (145 lb 11.2 oz) 01/19/2025 2:15 PM CDT Height 165.1 cm (5' 5) 01/19/2025 2:15 PM CDT Body Mass Index 24.25 01/19/2025 2:15 PM CDT Plan of Treatment Health Maintenance Due Date Last Done Comments Hepatitis C Virus (HCV) Screening 1970 Mammogram 1970 SARS-COV-2 Immunization (#1) 1974 Hepatitis B Immunization (1 of 3 - 19+ 3-dose series) 1988 Pneumococcal Immunization (50+ years) (1 of 2 - PCV) 1988 Zoster Immunization (1 of 2) 1988 Pap Smear 1990 Cervical Cancer Screening (CCS) 1999 HPV/Cotest 1999 Cologuard 2014 Immunochemical Fecal Occult Blood 2014 Influenza Immunization (#1) 2025 09/2 12/2023, 09/03/2023, 08/29/2020, Additional history exists Td Immunization Every 10 Years (Adults With 1 Tdap) 05/04/2029 05/04/2019, 07/19/2016 Colonoscopy 10/13/2033 10/13/2023 Colorectal Cancer Screening 10/13/2033 Respiratory Syncytial Virus (RSV) Immunization (Adult) (1 - 1-dose 75+ series) 2044 DTaP/Tdap/Td Immunization Discontinued 05/04/2019, Human Papillomavirus (HPV) Immunization Aged Out No longer eligible based on patient's age to complete this topic Meningococcal Immunization (ACWY) Aged Out No longer eligible based on patient's age to complete this topic Rotavirus Immunization Aged Out No lo nger eligible based on patient's age to complete this topic Insurance [place] Care Teams Detail Assembler Relationship Specialty Start Date End Date Shankar Jimenez MD [address] [place] [address] PCP - General Family Medicine 04/19/21 Maribell Gomez MD [address] [address] Consulting Physician Endocrinology 10/23/22 Lev Alvarez MD [address] [place] [phone] Consulting Physician Oncology 01/19/25
--- OUTSIDE RECORDS SUMMARY | 2025-07-17 14:58 | XMS_ITS ---
Author Organization [facility] Address [address] [place] [address] Care Team Providers Care Residential Substance Abuse Counselor Name Role Phone Maria Luisa Turpin NP Primary Care Provider Maria Lusia Turpin NP Unavailable [phone] Debbie Rhodes MD Unavailable Erlinda Gonzalez NP Unavailable Brynat Joaquin MD Unavailable [phone] Alex Caldwell MD Unavailable Joaquín Starr MD Unavailable Active Problems Problem Noted Date Diagnosed Date [...] Overview (11/12/2023): Biliuria;Recorded Elsewhere: No Location: [facility] Source: EHR Chronic: N Practice ID: [id number] Billable Time: 01:00:00 PM Cyst of ovary 09/29/2019 Overview (11/12/2023): Unspecified ovarian cyst, unspecified side;Recorded Elsewhere: No Location: [facility] Source: EHR Chronic: N Practice ID: [id number] Billable Time: 01:00:00 PM Acetonuria 09/06/2019 Overview (11/12/2023): Acetonuria;Recorded Elsewhere: No Location: [facility] Source: EHR Chronic: N Practice ID: [id number] Billable Time: 01:30:00 PM Disorder of intrauterine contraceptive device Overview (11/12/2023): [facility] compl of intrauterine contraceptive device, init encntr;Recorded Elsewhere: No Location: [facility] Source: EHR Chronic: N Practice ID: [id number] Billable Time: 09:45:00 AM Psoriasis vulgaris 06/13/2016 S/P gastric bypass 09/18/2015 Acne vulgaris 08/30/2015 Rosacea 08/30/2015 Acne 07/20/2015 Uses intrauterine device for control 03/19 Overview (11/12/2023): Surveillance of intrauterine contraceptive device;Recorded Elsewhere: No Location: [facility] Source: EHR Chronic: N Practice ID: [id number] Billable Time: 03:00:00 PM Onychomycosis 02/26/2015 Psoriasis 02/26/2015 Chronic rhinitis 07/04/2014 Hypertension 02/02/2013 Arthralgia of shoulder 08/08/2011 Current Treatment and Therapy Plans No current plan information found. Past Treatment and Therapy Plans No past plan information found. Lifetime Dose Tracking * Chemical Lifetime Dose Automatic Entry Manual Entr y Fluoro Time 5.48 minutes 5.48 minutes 0 minutes Air kerma at the reference point (Ka,r) 144.5 mGy 1 44.5 mGy 0 mGy DLP 1,117 mGycm 1,117 mGycm 0 mGycm Resolved Problems Problem Noted Date Diagnosed Date Resolved Date Morbid obesity 05/21/2015 11/16/2024
== END 2025-07-17 13:22 | disposition home or self-care (01) ==
PROVIDERS: PCP Family Medicine; Visit Provider Advanced Practice Midwife
DX: R92.8 Other abnormal and inconclusive findings on diagnostic imaging of breast (principal)
CPT/HCPCS: 76641; 77061; 77065; G0279